=== PATIENT | female | born 1980 | race Caucasian/White ===

== ENCOUNTER 2016-07-13 14:02 | Inpatient (IN) | payer BC, OTHER ==
[2016-07-13] MEDS ORDERED: SODIUM CHLORIDE 0.9% 1,000 ML IV STA (14:16)
[2016-07-13] MEDS ORDERED: ONDANSETRON 4 MG/2 ML VIAL IVP STA (14:16)
[2016-07-13] MEDS ORDERED: DICYCLOMINE 10 MG/ML 2 ML AMP IM STA (14:16)
[2016-07-13] MEDS ORDERED: FAMOTIDINE 20 MG/2 ML VIAL IV STA (14:19)
--- NOTE | 2016-07-13 14:22 | ED ---
General Adult HPI - General Chief complaint: Abdominal Pain Stated complaint: Abd Pain Time Seen by Provider: 07/13/16 14:12 Source: patient, RN notes reviewed Mode of arrival: ambulatory Limitations: no limitations - History of Present Illness Initial comments: Patient is a pleasant 35-year-old female presenting to the emergency department with complaints of abdominal discomfort. Onset of symptoms was yesterday. Symptoms seemed to improve however have again worsened. Patient had some mild nausea earlier. No vomiting. No dysuria or hematuria. No constipation or diarrhea. Discomfort is somewhat positional. There is some radiation towards the back. No history of similar symptoms previously. - Related Data Home Medications Medication Instructions Recorded Confirmed Chromium Picolinate 200 mcg PO BID 07/13/16 07/13/16 Allergies Allergy/AdvReac Type Severity Reaction Status Date / Time No Known Allergies Allergy Verified 07/13/16 14:23 Review of Systems ROS Statement: Those systems with pertinent positive or pertinent negative responses have been documented in the HPI. ROS Other: All systems not noted in ROS Statement are negative. Constitutional: Denies: fever Eyes: Denies: eye pain ENT: Denies: ear pain Respiratory: Denies: cough, dyspnea Cardiovascular: Denies: chest pain Endocrine: Denies: fatigue Gastrointestinal: Reports: abdominal pain, nausea. Denies: vomiting Genitourinary: Denies: dysuria, hematuria Musculoskeletal: Denies: arthralgia Skin: Denies: rash Neurological: Denies: weakness Past Medical History Past Medical History: Diabetes Mellitus Additional Past Medical History / Comment(s): diverticulitis History of Any Multi-Drug Resistant Organisms: None Reported Past Surgical History: Hysterectomy, Tubal Ligation Additional Past Surgical History / Comment(s): WISDOM TEETH REMOVED UNDER ANESTHESIA, Past Anesthesia/Blood Transfusion Reactions: No Reported Reaction Past Psychological History: No Psychological Hx Reported Smoking Status: Never smoker Past Alcohol Use History: Occasional Past Drug Use History: None Reported - Past Family History Mother Family Medical History: No Reported History General Exam Limitations: no limitations General appearance: alert, in no apparent distress Head exam: Present: atraumatic Eye exam: Present: normal appearance, PERRL ENT exam: Present: normal exam Neck exam: Present: normal inspection Respiratory exam: Present: normal lung sounds bilaterally Cardiovascular Exam: Present: regular rate, normal rhythm Expanded Peripheral pulses: 2+: Posterior Tibialis (R), Posterior Tibialis (L) GI/Abdominal exam: Present: soft, tenderness (Mild tenderness in the periumbilical region and left upper quadrant), normal bowel sounds. Absent: distended, guarding, rebound, rigid Extremities exam: Present: normal inspection Back exam: Absent: CVA tenderness (L) (States below the left CVA as the area of discomfort however no tenderness to palpation.) Neurological exam: Present: alert Psychiatric exam: Present: normal affect, normal mood Skin exam: Absent: rash Course Vital Signs 07/13/16 07/13/16 14:03 16:01 Temperature 98.4 F Pulse Rate 72 68 Respiratory 18 18 Rate Blood Pressure 109/53 126/87 O2 Sat by Pulse 99 99 Oximetry - Reevaluation(s) Reevaluation #1: 07/13/16 15:55 Patient was reevaluated with similar complaints and abdominal exam. Patient updated on elevated blood sugar. Patient states she was on metformin however was taken off of this secondary to concerns for diarrhea. Patient will discuss this again with her primary care physician. Patient was also updated on an ability to run lipase and need for further evaluation with this as well as cholesterol testing. 07/13/16 15:55 Patient does not want any further pain medication at this time. Medical Decision Making - Medical Decision Making Patient reevaluated and has continued pain. Patient was not receptive to medication. Patient was updated on results and plan. Case was discussed in detail with Dr. Briscoe, who will admit for Dr. Gottlieb. Consult with Dr. Hubbard - Lab Data Result diagrams: 07/13/16 14:45 07/13/16 14:45 Lab Results 07/13/16 07/13/16 07/13/16 Range/Units 14:45 14:45 14:45 WBC 7.5 (3.8-10.6) k/uL RBC 4.41 (3.80-5.40) m/uL Hgb 14.1 (11.4-16.0) gm/dL Hct 39.3 (34.0-46.0) % MCV 89.1 (80.0-100.0) fL MCH 31.9 (25.0-35.0) pg MCHC 35.9 (31.0-37.0) g/dL RDW 13.0 (11.5-15.5) % Plt Count 236 (150-450) k/uL Neutrophils % 70 % Lymphocytes % 21 % Monocytes % 4 % Eosinophils % 3 % Basophils % 1 % Neutrophils # 5.3 (1.3-7.7) k/uL Lymphocytes # 1.5 (1.0-4.8) k/uL Monocytes # 0.3 (0-1.0) k/uL Eosinophils # 0.2 (0-0.7) k/uL Basophils # 0.1 (0-0.2) k/uL Sodium 134 L (137-145) mmol/L Potassium 5.3 H (3.5-5.1) mmol/L Chloride 102 (98-107) mmol/L Carbon Dioxide 21 L (22-30) mmol/L Anion Gap 11 mmol/L BUN 11 (7-17) mg/dL Creatinine 0.50 L (0.52-1.04) mg/dL Est GFR (MDRD) Af Amer >60 (>60 ml/min/1.73 sqM) Est GFR (MDRD) Non-Af >60 (>60 ml/min/1.73 sqM) Glucose 262 H (74-99) mg/dL Calcium 9.5 (8.4-10.2) mg/dL Total Bilirubin 1.5 H (0.2-1.3) mg/dL AST 72 H (14-36) U/L ALT 51 (9-52) U/L Alkaline Phosphatase 114 (38-126) U/L Total Protein 8.5 H (6.3-8.2) g/dL Albumin 4.7 (3.5-5.0) g/dL Amylase 97 (30-110) U/L Lipase (23-300) U/L Urine Color Yellow Urine Appearance Cloudy H (Clear) Urine pH 5.0 (5.0-8.0) Ur Specific [place] 1.033 (1.001-1.035) Urine Protein Trace H (Negative) Urine Glucose (UA) 4+ H (Negative) Urine Ketones Negative (Negative) Urine Blood Small H (Negative) Urine Nitrite Negative (Negative) Urine Bilirubin Negative (Negative) Urine Urobilinogen <2.0 (<2.0) mg/dL Ur Leukocyte Esterase Negative (Negative) Urine RBC 1 (0-5) /hpf Urine WBC 3 (0-5) /hpf Ur Squamous Epith Cells 9 H (0-4) /hpf Urine Bacteria Rare H (None) /hpf Urine Mucus Occasional H (None) /hpf - Radiology Data Radiology results: report reviewed (Computed tomography scan abdomen and pelvis shows concerns for acute pancreatitis), image reviewed (Abdominal x-ray shows no acute process) Disposition Clinical Impression: Pancreatitis Disposition: ADMITTED IP TO THIS HOSP
[2016-07-13 15:15] LABS: Chloride 102 mmol/L (98-107)
--- NOTE | 2016-07-13 15:15 | XR ---
EXAMINATION TYPE: XR KUB DATE OF EXAM: 07/13/2016 3:06 PM CLINICAL HISTORY: Left-sided abdominal pain and nausea. TECHNIQUE: 2 upright KUB images of the abdomen are obtained. COMPARISON: Abdominal x-ray and CT abdomen and pelvis August 25, 2011. FINDINGS: Scattered gas is seen in non-distended small bowel loops. Gas and fecal material is seen in non-distended colon. The amount of fecal material is slightly prominent in the pelvis. Curvilinear density right midabdomen is felt to reflect dependent calcified gallstones. No pneumoperitoneum is s een. Lung bases are clear. Visualized osseous structures are intact. IMPRESSION: Overall nonobstructive bowel gas pattern. Perhaps mild to moderate distal colonic fecal stasis. Calci fied gallstones redemonstrated.
[2016-07-13 15:19] LABS: Appearance,Urine Cloudy (Clear); Bacteria,Urine Rare /hpf; Bilirubin,Urine Negative (Negative); Glucose,Urine (UA) 4+ (Negative); Ketones,Urine Negative (Negative); Leukocyte Esterase,Urine Negative (Negative); Mucus,Urine Occasional /hpf; Nitrite,Urine Negative (Negative); Particle Count 8350; Protein,Urine Trace (Negative); RBC,Urine 1 /hpf (0-5); Specific Gravity,Urine 1.033 (1.001-1.035); Squamous Epithelial Cell,Urine 9 /hpf (0-4); UA Billing (MACRO vs. MICRO) MICRO; Urobilinogen,Urine <2.0 mg/dL (<2.0); WBC,Urine 3 /hpf (0-5)
[2016-07-13 15:21] LABS: Sodium 134 mmol/L (137-145)
[2016-07-13 15:25] LABS: Basophils # (A) 0.1 k/uL (0-0.2); Basophils % (A) 1 %; CH 31.9; CHCM 35.9; Eosinophils # (A) 0.2 k/uL (0-0.7); Eosinophils % (A) 3 %; HCT 39.3 % (34.0-46.0); HDW 2.81; Luc # (Auto) 0.11; Luc % (Auto) 2; Lymphocytes # (A) 1.5 k/uL (1.0-4.8); Lymphocytes % (A) 21 %; MCV 89.1 fL (80.0-100.0); Mean Platelet Volume 7.9; Monocytes # (A) 0.3 k/uL (0-1.0); Monocytes % (A) 4 %; Neutrophils # (A) 5.3 k/uL (1.3-7.7); Neutrophils % (A) 70 %; RBC 4.41 m/uL (3.80-5.40); WBC 7.5 k/uL (3.8-10.6); WBC (Perox) 6.94
[2016-07-13 15:26] LABS: Potassium 5.3 mmol/L (3.5-5.1)
[2016-07-13 15:39] LABS: MCHC 35.9 g/dL (31.0-37.0)
[2016-07-13 15:40] LABS: HGB 14.1 gm/dL (11.4-16.0); MCH 31.9 pg (25.0-35.0)
[2016-07-13 15:45] LABS: ALT 51 U/L (9-52); AST 72 U/L (14-36); Alkaline Phosphatase 114 U/L (38-126); Amylase 97 U/L (30-110); Anion Gap 11 mmol/L; Blood Urea Nitrogen 11 mg/dL (7-17); Calcium 9.5 mg/dL (8.4-10.2); Carbon Dioxide 21 mmol/L (22-30); Glucose 262 mg/dL (74-99); Non-African American GFR(MDRD) >60 (>60 ml/min/1.73 sqM); Total Bilirubin 1.5 mg/dL (0.2-1.3); Total Protein 8.5 g/dL (6.3-8.2)
[2016-07-13] MEDS ORDERED: RX INFO: IV CONTRAST WAS GIVEN 1 EACH MISC MISCELLANE PRN (15:56)
--- NOTE | 2016-07-13 17:10 | CT ---
EXAMINATION TYPE: CT abdomen pelvis w con DATE OF EXAM: 07/13/2016 4:40 PM HISTORY: Right upper quadrant pain x [address] DLP: 595.90mGycm Automated Exposure Control for Dose Reduction was Utilized. CONTRAST: CT scan of the abdomen and pelvis is performed without oral but with IV Contrast, patient injected wi th 100 mL of Omnipaque 300. COMPARISON: CT abdomen and pelvis August 25, 2011. FINDINGS: LUNG BASES: Dependent atelectatic changes present in both bases. LIVER/GB: Liver is diffusely hypodense consistent with fatty infiltration. PANCREAS: Pancreas is prominent particularly in distal body and tail with ill-defined surrounding flu id noted seen best near axial image 24. CT findings are consistent with acute pancreatitis. No suspic ious nonenhancement is present to suggest necrosis. No well-formed fluid collection is seen. SPLEEN: No significant abnormality is seen. ADRENALS: No significant abnormality is seen. KIDNEYS: No significant abnormality is seen. BOWEL: No suspicious small or large bowel dilatation is seen. Normal-appearing appendix is seen from cecum. Occasional diverticula are seen in the left and sigmoid colon. There is no CT evidence for ac [place] diverticulitis. UTERUS/ADNEXA: Uterus is surgically absent or markedly atrophic in appearance. There is 4.5 x 3.7 cm right adnexal or pelvic mass on axial image 79 suspicious for ovarian cyst. This is new from pelvic u ltrasound January 2015. LYMPH NODES: No greater than 1cm abdominal or pelvic lymph nodes are appreciated. OSSEOUS STRUCTURES: Bilateral pars defects L5 level are seen. No significant spondylolisthesis is pre sent. OTHER: No significant additional abnormality is seen. IMPRESSION: 1. CT findings are suggestive of acute pancreatitis centered in the pancreatic tail, clinical and lab correlation advised. 2. There is new 4.5 cm right adnexal or ovarian cystic lesion favoring ovarian cyst. Pelvic ultrasoun d is advised to better evaluate and characterize.
[2016-07-13] MEDS ORDERED: MORPHINE SULFATE 2 MG/ML SYRINGE IVP STA (18:29)
[2016-07-13] MEDS ORDERED: NALOXONE 0.4 MG/ML 1 ML VIAL IV PRN (18:30)
[2016-07-13] MEDS: MORPHINE SULFATE 4 MG/ML SYRINGE IV PRN ×2 (18:45→22:00)
[2016-07-13] MEDS: SODIUM CHLORIDE 0.9% 1,000 ML IV SCH (19:04)
[2016-07-14] MEDS: MORPHINE SULFATE 4 MG/ML SYRINGE IV PRN ×2 (03:08→10:51)
[2016-07-14] MEDS: SODIUM CHLORIDE 0.9% 1,000 ML IV SCH ×2 (04:38→13:36)
[2016-07-14 08:18] LABS: Glucose,Whole Blood 303 mg/dL (75-99)
[2016-07-14] MEDS: PANTOPRAZOLE 40 MG/10 ML VIAL IV SCH (08:23)
--- NOTE | 2016-07-14 08:23 | US ---
EXAMINATION TYPE: US gallbladder DATE OF EXAM: 07/14/2016 7:50 AM COMPARISON: CT abdomen and pelvis from yesterday. CLINICAL HISTORY: Pancreatitis. NPO. Diabetic. EXAM MEASUREMENTS: Liver Length: 18.9 cm Gallbladder Wall: 0.2 cm CBD: 0.4 cm Right Kidney: 11.0 x 5.5 x 4.4 cm Pancreas: Tail not well seen due to overlying bowel gas. Body = 2.3 cm Liver: Increased attenuation, echogenic Gallbladder: Mobile echogenic foci Evidence for sonographic Barton's sign: neg CBD: wnl Right Kidney: wnl Visualized pancreas is slightly prominent. Tail is obscured by overlying bowel gas at area of concern on recent CT. Liver is heterogeneously hyperechoic consistent with fatty infiltration as seen on rec ent CT. Mobile nonshadowing foci in gallbladder could reflect small sludge. No pericholecystic fluid collection or abnormal gallbladder wall thickening is seen. IMPRESSION: Small degree of gallbladder sludge without ultrasound evidence for acute cholecystitis.
[2016-07-14 09:17] LABS: Amylase 93 U/L (30-110); Cholesterol 320 mg/dL (<200); HDL Cholesterol 36 mg/dL (40-60)
[2016-07-14 09:56] LABS: Glucose,Whole Blood 277 mg/dL (75-99)
[2016-07-14 10:32] LABS: Triglycerides 2495 mg/dL (<150)
[2016-07-14] MEDS: INSULIN LISPRO (humaLOG) 300 UNIT/3 ML VIAL SQ SCH ×4 (10:42→21:45)
[2016-07-14] MEDS: ONDANSETRON 4 MG/2 ML VIAL IVP PRN ×2 (11:02→15:07)
[2016-07-14 11:46] LABS: Glucose,Whole Blood 221 mg/dL (75-99)
[2016-07-14] MEDS ORDERED: ACETAMINOPHEN TAB 500 MG TAB PO PRN (12:23)
--- NOTE | 2016-07-14 13:36 | P.GSCN ---
History of Present Illness Consult date: 07/14/16 Reason for Consult: Gallstone pancreatitis History of present illness: This is a 35-year-old female who is admitted through the emergency room with complaints of epigastric abdominal pain and back pain. She is workup found have evidence of peritonitis as well as gallstones. Patient states her pain is still present in her back. Past Medical History Past Medical History: Diabetes Mellitus Additional Past Medical History / Comment(s): diverticulitis History of Any Multi-Drug Resistant Organisms: None Reported Past Surgical History: Hysterectomy, Tubal Ligation Additional Past Surgical History / Comment(s): WISDOM TEETH REMOVED UNDER ANESTHESIA, Past Anesthesia/Blood Transfusion Reactions: No Reported Reaction Past Psychological History: No Psychological Hx Reported Smoking Status: Never smoker Past Alcohol Use History: Occasional Past Drug Use History: None Reported - Past Family History Mother Family Medical History: No Reported History Medications and Allergies Home Medications Medication Instructions Recorded Confirmed Type Chromium Picolinate 200 mcg PO BID 07/13/16 07/13/16 History Allergies Allergy/AdvReac Type Severity Reaction Status Date / Time No Known Allergies Allergy Verified 07/13/16 14:23 Surgical - Exam Vital Signs Temp Pulse Resp BP Pulse Ox 98.4 F 72 18 109/53 99 07/13/16 14:03 07/13/16 14:03 07/13/16 14:03 07/13/16 14:03 07/13/16 14:03 - General well developed, no distress - Eyes PERRL - ENT normal pinna - Neck no masses - Respiratory normal expansion - Cardiovascular Rhythm: regular - Abdomen Mild epigastric tenderness. There is no rebound or guarding. Abdomen: soft Results - Labs 07/13/16 14:45 07/13/16 14:45 Abnormal Lab Results - Last 24 Hours (Table) 07/14/16 07/14/16 07/14/16 Range/Units 08:15 08:35 08:35 POC Glucose (mg/dL) 303 H (75-99) mg/dL Triglycerides 2495 H (<150) mg/dL Cholesterol 320 H (<200) mg/dL HDL Cholesterol 36 L (40-60) mg/dL Lipase 675 H (23-300) U/L 07/14/16 07/14/16 Range/Units 09:53 11:43 POC Glucose (mg/dL) 277 H 221 H (75-99) mg/dL Triglycerides (<150) mg/dL Cholesterol (<200) mg/dL HDL Cholesterol (40-60) mg/dL Lipase (23-300) U/L Diabetes panel 07/14/16 Range/Units 08:35 Triglycerides 2495 H (<150) mg/dL HDL Cholesterol 36 L (40-60) mg/dL - Imaging US - abdomen: report reviewed (Gallstones) Assessment and Plan Plan: Gallstone pancreas. Patient's lipase will be monitored. If her lipase decreases we'll consider laparoscopic cholecystectomy tomorrow.
[2016-07-14 13:59] LABS: Hemoglobin A1C 11.3 % (4.2-6.1)
--- NOTE | 2016-07-14 16:34 | P.HPIM ---
History of Present Illness H&P Date: 07/14/16 Chief Complaint: Abdominal pain This is a pleasant 35-year-old lady patient of Dr. Rivera. She has underlying history of diabetes mellitus type 2, hyperlipidemia, and recent hysterectomy laparoscopy robotic-assisted secondary to menometrorrhagia, patient was admitted secondary to abdominal pain which started 1 day prior to admission accompanied by nausea no fever no chills no diarrhea patient has bloating off and on without any jaundice. In the emergency room she was evaluated and found her to be suffering from acute pancreatitis also with ill-defined swelling in the distal body of the pancreas and the tail of the pancreas, amylase was normal however the original lipase evaluation cannot be treated as the patient's serum has been very lipemic , fasting lipase is elevated at 675, fasting triglyceride 2495 urinalysis normal RBC [address] findings show new 4.5 cm right adnexal or ovarian cyst favoring ovarian cyst, needs to be monitored patient, fatty liver noted, no suspicious enhancement representing necrosis Also ultrasound of the gallbladder shows small degree of sludge without ultrasound evidence of acute cholecystitis, and bile duct wall within normal limits, and bile duct 0.4 cm the bladder wall 0.2 cm a consult was made with Dr. Hubbard general surgery she currently is nothing by mouth Review of Systems Constitutional: Reports as per HPI, Reports anorexia, Reports chills, Reports poor appetite, Denies chronic headaches, Denies chronic pain, Denies daytime sleepiness, Denies fatigue, Denies fever, Denies lethargy, Denies malaise, Denies night sweats, Denies sweats, Denies weakness, Denies weight gain, Denies weight loss Ears, nose, mouth and throat: Reports as per HPI, Denies ant. neck pain, Denies bleeding gums, Denies dental pain, Denies dysphagia, Denies epistaxis, Denies headache, Denies hoarseness, Denies mouth pain, Denies nasal congestion, Denies nasal discharge, Denies neck fullness/pressure, Denies neck lump, Denies nose pain, Denies odynophagia, Denies post-nasal drip, Denies sinus pain, Denies sinus pressure, Denies swelling in mouth, Denies swelling in throat, Denies sore throat, Denies vertigo, Denies voice changes Cardiovascular: Reports as per HPI, Denies chest pain, Denies claudication, Denies decreased exercise tolerance, Denies dyspnea on exertion, Denies edema, Denies high blood pressure, Denies irregular heart beat, Denies leg edema, Denies lightheadedness, Denies orthopnea, Denies palpitations, Denies paroxysmal nocturnal dyspnea, Denies phlebitis, Denies rapid heart beat, Denies shortness of breath, Denies syncope Respiratory: Reports as per HPI, Denies congestion, Denies cough, Denies cough with sputum, Denies dyspnea, Denies excessive sputum, Denies hemoptysis, Denies home oxygen, Denies pain, Denies pain on inspiration, Denies pleurisy, Denies respiratory infections, Denies sleep apnea, Denies snoring, Denies wheezing Gastrointestinal: Reports as per HPI, Reports abdominal pain, Reports bloating, Reports early satiety, Reports nausea, Denies belching, Denies BRBPR, Denies change in bowel habits, Denies coffee ground emesis, Denies constipation, Denies diarrhea, Denies dyspepsia, Denies excessive gas, Denies heartburn, Denies hematemesis, Denies hematochezia, Denies indigestion, Denies jaundice, Denies lactose intolerance, Denies loss of appetite, Denies melena, Denies vomiting Genitourinary: Reports as per HPI, Denies abnormal vaginal bleeding, Denies decreased libido, Denies difficulty conceiving, Denies difficulty voiding, Denies dysmenorrhea, Denies dyspareunia, Denies dysuria, Denies flank pain, Denies genital sores, Denies hematuria, Denies hot flashes, Denies incomplete emptying, Denies kidney stones, Denies menorrhagia, Denies mixed incontinence, Denies nocturia, Denies pelvic pain, Denies post void dribbling, Denies , Denies prolapse symptoms, Denies stress incontinence, Denies urge incontinence , Denies urgency, Denies urinary frequency, Denies vaginal discharge, Denies vaginal dryness, Denies vaginal itching, Denies vaginal odor Menstruation: Reports as per HPI, Denies amenorrhea, Denies amenorrhea on BC, Denies currently menstrual, Denies cycle < 21 days, Denies cycle > 35 days, Denies cycle variable, Denies menses 1-7 days, Denies menses 8 or > days, Denies menses variable, Denies period heavy, Denies period light, Denies period normal, Denies period spotting, Denies post hysterectomy, Denies postmenopausal , Denies premenarcheal Musculoskeletal: Reports as per HPI, Denies arm numbness/tingling, Denies atrophy, Denies fractures, Denies frequent falls, Denies gait dysfunction, Denies hot joints, Denies leg numbness/tingling, Denies limitation of motion, Denies loss of height, Denies low back pain, Denies morning stiffness, Denies muscle cramps, Denies muscle weakness, Denies myalgias, Denies neck pain, Denies neck stiffness, Denies prior amputations, Denies redness of joints, Denies shooting arm pain, Denies shooting leg pain Integumentary: Reports as per HPI, Denies acne, Denies boils, Denies brittle nails, Denies change in hair/nails, Denies color changes, Denies darkening of skin, Denies depigmentation, Denies dryness, Denies foot/leg ulcers, Denies growths, Denies hirsutism, Denies lesions, Denies onychomycosis, Denies pruritus , Denies rash, Denies sores, Denies striae, Denies unusual bruising, Denies wounds Neurological: Reports as per HPI, Denies aphasia, Denies ataxia, Denies balance difficulties, Denies burning pain, Denies change in mentation, Denies change in smell/taste, Denies change in speech, Denies confusion, Denies convulsions, Denies double vision, Denies gait dysfunction, Denies head injury, Denies headaches, Denies hearing difficulties, Denies lack of coordination, Denies loss of vision, Denies memory loss, Denies migraines, Denies motor disturbance, Denies numbness, Denies paralysis, Denies paresthesias, Denies seizures, Denies sensory deficit, Denies spasticity, Denies syncope, Denies tic, Denies tingling , Denies transient paralysis, Denies tremors, Denies vertigo, Denies weakness, Denies visual changes Psychiatric: Reports as per HPI, Denies anhedonia, Denies anxiety, Denies anxiety attacks, Denies change in appetite, Denies change in libido, Denies change in sleep habits, Denies confusion, Denies depression, Denies difficulty concentrating, Denies disorientation, Denies hallucinations, Denies hopelessness , Denies hypersomnia, Denies insomnia, Denies irritability, Denies memory loss, Denies mood swings, Denies paranoia, Denies sadness/tearfulness, Denies sleep disturbances, Denies suicidal ideation Endocrine: Reports as per HPI, Denies cold intolerance, Denies deepening of the voice, Denies excessive sweating, Denies excessive thirst, Denies fatigue, Denies flushing, Denies heat intolerance, Denies high blood sugars, Denies increase in ring/shoe/hat size, Denies low blood sugars, Denies nocturia, Denies palpitations, Denies polydipsia, Denies polyphagia, Denies polyuria, Denies proptosis, Denies recent glucocorticoid use, Denies thyroid mass, Denies weight change Hematologic/Lymphatic: Reports as per HPI, Denies easy bleeding, Denies easy bruising, Denies lymphadenopathy, Denies lymphedema, Denies thrombophilia Allergic/Immunologic: Reports as per HPI, Denies allergic rhinitis, Denies anaphylaxis, Denies angioedema, Denies gluten intolerance, Denies persistent infections, Denies seasonal allergies, Denies urticaria, Denies wheezing Past Medical History Past Medical History: Diabetes Mellitus Additional Past Medical History / Comment(s): diverticulitis History of Any Multi-Drug Resistant Organisms: None Reported Past Surgical History: Hysterectomy, Tubal Ligation Additional Past Surgical History / Comment(s): WISDOM TEETH REMOVED UNDER ANESTHESIA, Past Anesthesia/Blood Transfusion Reactions: No Reported Reaction Past Psychological History: No Psychological Hx Reported Smoking Status: Never smoker Past Alcohol Use History: Occasional Past Drug Use History: None Reported - Past Family History Mother Family Medical History: No Reported History, Diabetes Mellitus Father Family Medical History: Diabetes Mellitus Brother(s) Family Medical History: No Reported History Sister(s) Family Medical History: No Reported History Daughter(s) Family Medical History: No Reported History Medications and Allergies Home Medications Medication Instructions Recorded Confirmed Type Chromium Picolinate 200 mcg PO BID 07/13/16 07/13/16 History Allergies Allergy/AdvReac Type Severity Reaction Status Date / Time No Known Allergies Allergy Verified 07/13/16 14:23 Physical Exam Vitals: Vital Signs Temp Pulse Pulse Resp BP BP Pulse Ox 04/30/17 08:00 96 16 07/14/16 07:00 98.4 F 109 H 16 113/67 99 07/13/16 22:57 96.4 F L 96 16 109/61 95 07/13/16 19:47 97.6 F 85 16 131/89 98 07/13/16 19:34 97.6 F 76 16 124/82 98 07/13/16 18:46 85 18 131/89 100 Intake and Output 07/14/16 07/14/16 07/14/16 06:59 14:59 22:59 Intake Total 800 785 Balance 800 785 Intake: IV 800 Sodium Chloride 0.9% 1, 800 000 ml @ 100 mls/hr IV . Q10H [facility] Rx#:[id number] Intake, IV Titration 785 Amount Sodium Chloride 0.9% 1, 785 000 ml @ 115 mls/hr IV . Q8H42M [facility] Rx#:[id number] Other: Voiding Method Toilet # Voids 1 3 Weight 65.771 kg - Constitutional General appearance: cooperative, no acute distress - EENT Eyes: anicteric sclerae, EOMI, PERRLA, normal appearance ENT: hard of hearing, NA/AT, normal oropharynx - Neck Neck: no lymphadenopathy, normal ROM, no other, no rigidity, no stridor, no thyromegaly - Respiratory Respiratory: bilateral: CTA, negative: diminished, dullness, rales, rhonchi, wheezing, prolonged expiration, prolonged inspiration - Cardiovascular Rhythm: regular Heart sounds: normal: S1, S2 Abnormal Heart Sounds: no systolic murmur, no diastolic murmur, no rub, no S3 Gallop, no S4 Gallop, no click, no other - Gastrointestinal General gastrointestinal: soft Localized gastrointestinal: tender: diffuse, epigastric periumbilical - Integumentary Integumentary: normal, normal turgor - Neurologic Neurologic: CNII-XII intact - Musculoskeletal Musculoskeletal: gait normal, strength equal bilaterally - Psychiatric Psychiatric: A&O x's 3, appropriate affect, intact judgment & insight Results CBC & Chem 7: 07/13/16 14:45 07/13/16 14:45 Labs: Abnormal Lab Results - Last 24 Hours (Table) 07/14/16 07/14/16 07/14/16 Range/Units 08:15 08:35 08:35 POC Glucose (mg/dL) 303 H (75-99) mg/dL Triglycerides 2495 H (<150) mg/dL Cholesterol 320 H (<200) mg/dL HDL Cholesterol 36 L (40-60) mg/dL Lipase 675 H (23-300) U/L 07/14/16 07/14/16 Range/Units 09:53 11:43 POC Glucose (mg/dL) 277 H 221 H (75-99) mg/dL Triglycerides (<150) mg/dL Cholesterol (<200) mg/dL HDL Cholesterol (40-60) mg/dL Lipase (23-300) U/L Laboratory Results WBC 7.5 k/uL (3.8-10.6) 07/13/16 14:45 RBC 4.41 m/uL (3.80-5.40) 07/13/16 14:45 Hgb 14.1 gm/dL (11.4-16.0) 07/13/16 14:45 Hct 39.3 % (34.0-46.0) 07/13/16 14:45 MCV 89.1 fL (80.0-100.0) 07/13/16 14:45 MCH 31.9 pg (25.0-35.0) 07/13/16 14:45 MCHC 35.9 g/dL (31.0-37.0) 07/13/16 14:45 RDW 13.0 % (11.5-15.5) 07/13/16 14:45 Plt Count 236 k/uL (150-450) 07/13/16 14:45 Neutrophils % 70 % 07/13/16 14:45 Lymphocytes % 21 % 07/13/16 14:45 Monocytes % 4 % 07/13/16 14:45 Eosinophils % 3 % 07/13/16 14:45 Basophils % 1 % 07/13/16 14:45 Neutrophils # 5.3 k/uL (1.3-7.7) 07/13/16 14:45 Lymphocytes # 1.5 k/uL (1.0-4.8) 07/13/16 14:45 Monocytes # 0.3 k/uL (0-1.0) 07/13/16 14:45 Eosinophils # 0.2 k/uL (0-0.7) 07/13/16 14:45 Basophils # 0.1 k/uL (0-0.2) 07/13/16 14:45 Sodium 134 mmol/L (137-145) L 07/13/16 14:45 Potassium 5.3 mmol/L (3.5-5.1) H 07/13/16 14:45 Chloride 102 mmol/L (98-107) 07/13/16 14:45 Carbon Dioxide 21 mmol/L (22-30) L 07/13/16 14:45 Anion Gap 11 mmol/L 07/13/16 14:45 BUN 11 mg/dL (7-17) 07/13/16 14:45 Creatinine 0.50 mg/dL (0.52-1.04) L 07/13/16 14:45 Est GFR (MDRD) Af Amer >60 (>60 ml/min/1.73 sqM) 07/13/16 14:45 Est GFR (MDRD) Non-Af >60 (>60 ml/min/1.73 sqM) 07/13/16 14:45 Glucose 262 mg/dL (74-99) H 07/13/16 14:45 POC Glucose (mg/dL) 221 mg/dL (75-99) H 07/14/16 11:43 POC Glu Back Office Medical Assistant ID Palmer Henao 07/14/16 11:[address] Glu mg/dL 278 mg/dL 07/13/16 14:45 Hemoglobin A1c 11.3 % (4.2-6.1) H 07/13/16 14:45 Calcium 9.5 mg/dL (8.4-10.2) 07/13/16 14:45 Magnesium 1.8 mg/dL (1.6-2.3) 07/14/16 08:35 Total Bilirubin 1.5 mg/dL (0.2-1.3) H 07/13/16 14:45 AST 72 U/L (14-36) H 07/13/16 14:45 ALT 51 U/L (9-52) 07/13/16 14:45 Alkaline Phosphatase 114 U/L (38-126) 07/13/16 14:45 Total Protein 8.5 g/dL (6.3-8.2) H 07/13/16 14:45 Albumin 4.7 g/dL (3.5-5.0) 07/13/16 14:45 Triglycerides 2495 mg/dL (<150) H 07/14/16 08:35 Cholesterol 320 mg/dL (<200) H 07/14/16 08:35 LDL Cholesterol, Calc mg/dL (0-99) 07/14/16 08:35 HDL Cholesterol 36 mg/dL (40-60) L 07/14/16 08:35 Amylase 93 U/L (30-110) 07/14/16 08:35 Lipase 675 U/L (23-300) H 07/14/16 08:35 Urine Color Yellow 07/13/16 14:45 Urine Appearance Cloudy (Clear) H 07/13/16 14:45 Urine pH 5.0 (5.0-8.0) 07/13/16 14:45 Ur Specific [place] 1.033 (1.001-1.035) 07/13/16 14:45 Urine Protein Trace (Negative) H 07/13/16 14:45 Urine Glucose (UA) 4+ (Negative) H 07/13/16 14:45 Urine Ketones Negative (Negative) 07/13/16 14:45 Urine Blood Small (Negative) H 07/13/16 14:45 Urine Nitrite Negative (Negative) 07/13/16 14:45 Urine Bilirubin Negative (Negative) 07/13/16 14:45 Urine Urobilinogen <2.0 mg/dL (<2.0) 07/13/16 14:45 Ur Leukocyte Esterase Negative (Negative) 07/13/16 14:45 Urine RBC 1 /hpf (0-5) 07/13/16 14:45 Urine WBC 3 /hpf (0-5) 07/13/16 14:45 Ur Squamous Epith Cells 9 /hpf (0-4) H 07/13/16 14:45 Urine Bacteria Rare /hpf (None) H 07/13/16 14:45 Urine Mucus Occasional /hpf (None) H 07/13/16 14:45 Thrombosis Risk Factor Assmnt - DVT/VTE Prophylaxis DVT/VTE Prophylaxis: Low risk, early ambulation encouraged - Choose All That Apply Any of the Below Risk Factors Present?: Yes Each Factor Represents 1 point: Obesity (BMI >25) Thrombosis Risk Factor Assessment Total Risk Factor Score: 1 Thrombosis Risk Factor Assessment Level: Low Risk Assessment and Plan Plan: 1. Pancreatitis secondary to significant lipemia and elevated triglycerides, patient has sludge in the Bladder by ultrasound, no visible stones noted, common bile duct is normal, liver function test is slightly elevated without any evidence off obstructive processes, patient will be seen consultation by Dr. Mikki De Santiago, patient would be started on clears with the anticipation of gallbladder surgery in the immediate future, as recommended by general surgery Dr. Hubbard 2. Hyperlipidemia patient was advised on dietary modifications again 3. Uncontrolled diabetes mellitus with hemoglobin A1c of 11.3, patient was type II with recent diagnosis and has been off metformin, patient will be started on Lantus 20 units daily and NovoLog sliding scale. Patient most likely would be titrated down to her orals 4. Hyperosmolar nonketotic hyperglycemia, with dehydration, no ketones noted on clinical laboratories, patient maintains hydration, diabetes management with compliance as well as Lantus and oral agents 5. Fatty liver related liver function test secondary to dietary negligence 6. Dehydration, IV fluids were given, 1 L for hemodynamic instability in view off the current pending despite this GI Prophylaxis and DVT prophylaxis Protonix and JABIER hose
[2016-07-14 17:13] LABS: Glucose,Whole Blood 225 mg/dL (75-99)
[2016-07-14 19:48] LABS: Glucose,Whole Blood 322 mg/dL (75-99)
[2016-07-14] MEDS: ACETAMINOPHEN TAB 325 MG TAB PO PRN (21:44)
[2016-07-14] MEDS: INSULIN GLARGINE 100 UNIT/ML 10 ML VIAL SQ SCH (21:45)
[2016-07-15] MEDS: SODIUM CHLORIDE 0.9% 1,000 ML IV SCH ×2 (03:24→08:02)
[2016-07-15] MEDS: ACETAMINOPHEN TAB 325 MG TAB PO PRN ×2 (04:46→20:30)
[2016-07-15 07:32] LABS: Glucose,Whole Blood 214 mg/dL (75-99)
[2016-07-15] MEDS: INSULIN LISPRO (humaLOG) 300 UNIT/3 ML VIAL SQ SCH ×4 (08:02→20:36)
[2016-07-15] MEDS: PANTOPRAZOLE 40 MG/10 ML VIAL IV SCH (08:03)
[2016-07-15 09:42] LABS: Basophils % (A) 0 %; CH 31.3; CHCM 33.7; Eosinophils # (A) 0.1 k/uL (0-0.7); Eosinophils % (A) 1 %; HCT 37.8 % (34.0-46.0); HDW 2.61; HGB 12.6 gm/dL (11.4-16.0); Luc # (Auto) 0.07; Luc % (Auto) 1; Lymphocytes # (A) 0.8 k/uL (1.0-4.8); Lymphocytes % (A) 9 %; MCH 31.2 pg (25.0-35.0); MCHC 33.4 g/dL (31.0-37.0); MCV 93.6 fL (80.0-100.0); Mean Platelet Volume 8.1; Monocytes # (A) 0.3 k/uL (0-1.0); Monocytes % (A) 3 %; Neutrophils # (A) 7.9 k/uL (1.3-7.7); Neutrophils % (A) 86 %; RBC 4.04 m/uL (3.80-5.40); RDW 13.5 % (11.5-15.5); WBC 9.2 k/uL (3.8-10.6); WBC (Perox) 9.85
[2016-07-15 09:53] LABS: ALT 47 U/L (9-52); AST 41 U/L (14-36); Alkaline Phosphatase 92 U/L (38-126); Anion Gap 10 mmol/L; Blood Urea Nitrogen 4 mg/dL (7-17); Calcium 8.8 mg/dL (8.4-10.2); Carbon Dioxide 21 mmol/L (22-30); Chloride 106 mmol/L (98-107); Glucose 182 mg/dL (74-99); Non-African American GFR(MDRD) >60 (>60 ml/min/1.73 sqM); Potassium 3.8 mmol/L (3.5-5.1); Sodium 137 mmol/L (137-145); Total Bilirubin 0.9 mg/dL (0.2-1.3); Total Protein 6.3 g/dL (6.3-8.2)
[2016-07-15] MEDS ORDERED: IV FLUID CONTINUATION 1,000 ML IV ONE (11:31)
[2016-07-15] MEDS ORDERED: ONDANSETRON 4 MG/2 ML VIAL IVP ONE ×2 (11:42→13:56)
[2016-07-15] MEDS ORDERED: DEXAMETHASONE SOD PHOS (MDV) 100 MG/10 ML VIAL IVP ONE (11:43)
--- NOTE | 2016-07-15 11:43 | P.PN ---
Progress Note - Text The patient states she feels better today. Her liver enzymes improved. On exam her vital signs are stable. Her abdomen soft. Patient will undergo laparoscopic cholecystectomy today
[2016-07-15] MEDS ORDERED: SUCCINYLCHOLINE CHLORIDE 100 MG/5 ML SYR IV ONE (12:46)
[2016-07-15] MEDS ORDERED: ROCURONIUM BROMIDE 10 MG/ML 10 ML VIAL IV ONE (12:46)
[2016-07-15] MEDS ORDERED: GLYCOPYRROLATE 0.2 MG/ML 2 ML VIAL ONE (12:46)
[2016-07-15] MEDS ORDERED: MIDAZOLAM 2 MG/2 ML VIAL ONE (12:46)
[2016-07-15] MEDS ORDERED: NEOSTIGMINE 1 MG/ML 10 ML VIAL ONE (12:46)
[2016-07-15] MEDS ORDERED: PROPOFOL 10 MG/ML 20 ML VIAL IV ONE (12:46)
[2016-07-15] MEDS ORDERED: fentaNYL (PF) 50 MCG/ML 2 ML AMP ONE (12:46)
[2016-07-15] MEDS ORDERED: HEPARIN SODIUM,PORCINE 5,000 UNIT/ML 1 ML VIAL ONE (12:46)
[2016-07-15] MEDS ORDERED: LIDOCAINE 1% INJ 10MG/ML (20 ML MDV) ONE (12:46)
[2016-07-15] MEDS ORDERED: SODIUM CHLORIDE 0.9% 50 ML with ceFAZolin 2,000 MG IV ONE ×2 (12:52)
[2016-07-15] MEDS ORDERED: BUPIVACAIN-EPI 0.25%-1:200,000 30 ML VIAL SQ ONE (13:07)
[2016-07-15] MEDS ORDERED: LACTATED RINGERS 1,000 ML IV ONE ×2 (13:15→13:21)
[2016-07-15] MEDS ORDERED: NALOXONE 0.4 MG/ML 1 ML VIAL IV PRN (13:21)
[2016-07-15] MEDS ORDERED: HYDROcodone/APAP 5-325MG 1 EACH TAB PO PRN (13:21)
[2016-07-15] MEDS ORDERED: HYDROmorphone 1 MG/ML 1 ML SYRINGE IVP PRN (13:21)
[2016-07-15] MEDS ORDERED: ACETAMINOPHEN TAB 325 MG TAB PO PRN (13:21)
--- NOTE | 2016-07-15 13:21 | P.OP ---
Date of Procedure: 07/15/16 Preoperative Diagnosis: Gallstone pancreatitis Postoperative Diagnosis: Gallstone pancreatitis Procedure(s) Performed: Laparoscopic cholecystectomy Anesthesia: ANGELLA Surgeon: Marek Hubbard Estimated Blood Loss (ml): 5 Pathology: other (Gallbladder) Condition: stable Disposition: PACU Description of Procedure: The patient was placed on the operating table. The patient received a general endotracheal tube anesthesia. The patients abdomen was prepped and draped in the usual sterile fashion. Through an infraumbilical stab incision, the fascia of the anterior abdominal wall was grasped with a pair of Kochers and then the Veress needle was placed in the peritoneal cavity. Position of the Veress needle was confirmed with positive drop test. The abdomen was then insufflated. After adequate insufflation, the 10 mm trocar was placed in the peritoneal cavity. Following this the laparoscope was placed in the peritoneal cavity. The patient was placed in the head-up, right side up position and then a 5 mm trocar was placed in the right lateral and right subcostal position under direct visualization. A 8 mm trocar was placed in the epigastric position. The gallbladder was grasped in the fundus and infundibulum. Traction on the gallbladder was placed in the lateral and the cephalad positions. The triangle of Calot was visualized.. The cystic duct was bluntly dissected until the union of the cystic duct and common bile duct was seen. The cystic duct was then divided and sealed with the Harmonic scissors. A PDS Endoloop was then placed throughout the cystic duct stump. The cystic artery divided and sealed with the Harmonic scissors. The gallbladder was then removed from the liver bed using Harmonic scissors. The gallbladder was then extracted through the epigastric port site. Operative field was checked for any bleeding spots and Harmonic scissors was used to coagulate the liver bed. The abdomen was irrigated. The trocars were removed. The skin was closed using interrupted 3-0 Vicryl suture. Dermabond dressing were applied. The patient tolerated the procedure well.
[2016-07-15 13:55] LABS: Glucose,Whole Blood 227 mg/dL (75-99)
[2016-07-15 13:56] LABS: Hemoglobin A1C 11.1 % (4.2-6.1)
[2016-07-15] MEDS: KETOROLAC 30 MG/ML 1 ML VIAL IVP SCH ×2 (13:58→19:39)
[2016-07-15] MEDS ORDERED: METOCLOPRAMIDE 5 MG/ML 2 ML VIAL IVP ONE (14:08)
[2016-07-15] MEDS ORDERED: INSULIN LISPRO (humaLOG) 300 UNIT/3 ML VIAL SQ ONE (14:33)
[2016-07-15 14:38] VITALS: BMI 26.5
--- NOTE | 2016-07-15 14:43 | P.PN ---
Subjective This is a pleasant 35-year-old lady patient of Dr. Rivera. She has underlying history of diabetes mellitus type 2, hyperlipidemia, and recent hysterectomy laparoscopy robotic-assisted secondary to menometrorrhagia, patient was admitted secondary to abdominal pain which started 1 day prior to admission accompanied by nausea no fever no chills no diarrhea patient has bloating off and on without any jaundice. In the emergency room she was evaluated and found her to be suffering from acute pancreatitis also with ill-defined swelling in the distal body of the pancreas and the tail of the pancreas, amylase was normal however the original lipase evaluation cannot be treated as the patient's serum has been very lipemic , fasting lipase is elevated at 675, fasting triglyceride 2495 urinalysis normal RBC [address] findings show new 4.5 cm right adnexal or ovarian cyst favoring ovarian cyst, needs to be monitored patient, fatty liver noted, no suspicious enhancement representing necrosis Also ultrasound of the gallbladder shows small degree of sludge without ultrasound evidence of acute cholecystitis, and bile duct wall within normal limits, and bile duct 0.4 cm the bladder wall 0.2 cm a consult was made with Dr. Hubbard general surgery she currently is nothing by mouth 07/15: Repeat lipase is 275. Patient is status post laparoscopic cholecystectomy with Dr. Hubbard. Objective - Vital Signs Vital signs: Vital Signs Temp 98.3 F 07/15/16 07:00 Pulse 102 H 07/15/16 07:00 Resp 18 07/15/16 07:00 BP 101/60 07/15/16 07:00 Pulse Ox 94 L 07/15/16 07:00 Intake & Output 07/14/16 07/15/16 07/15/16 18:59 06:59 18:59 Intake Total 785 1510 Balance 785 1510 Intake: Intake, IV Titration 785 920 Amount Sodium Chloride 0.9% 1, 785 920 000 ml @ 115 mls/hr IV . Q8H42M [facility] Rx#:[id number] Oral 590 Other: Voiding Method Toilet Toilet # Voids 3 1 - Exam General appearance: cooperative, no acute distress - EENT Eyes: anicteric sclerae, EOMI, PERRLA, normal appearance ENT: hard of hearing, NA/AT, normal oropharynx - Neck Neck: no lymphadenopathy, normal ROM, no other, no rigidity, no stridor, no thyromegaly - Respiratory Respiratory: bilateral: CTA, negative: diminished, dullness, rales, rhonchi, wheezing, prolonged expiration, prolonged inspiration - Cardiovascular Rhythm: regular Heart sounds: normal: S1, S2 Abnormal Heart Sounds: no systolic murmur, no diastolic murmur, no rub, no S3 Gallop, no S4 Gallop, no click, no other - Gastrointestinal General gastrointestinal: soft Localized gastrointestinal: tender: diffuse, epigastric periumbilical - Integumentary Integumentary: normal, normal turgor - Neurologic Neurologic: CNII-XII intact - Musculoskeletal Musculoskeletal: gait normal, strength equal bilaterally - Psychiatric Psychiatric: A&O x's 3, appropriate affect, intact judgment & insight - Labs CBC & Chem 7: 07/15/16 08:46 07/15/16 08:46 Labs: Abnormal Lab Results - Last 24 Hours (Table) 07/14/16 07/14/16 07/14/16 Range/Units 08:35 08:35 09:53 POC Glucose (mg/dL) 277 H (75-99) mg/dL Triglycerides 2495 H (<150) mg/dL Cholesterol 320 H (<200) mg/dL HDL Cholesterol 36 L (40-60) mg/dL Lipase 675 H (23-300) U/L 07/14/16 07/14/16 07/14/16 Range/Units 11:43 17:09 19:47 POC Glucose (mg/dL) 221 H 225 H 322 H (75-99) mg/dL Triglycerides (<150) mg/dL Cholesterol (<200) mg/dL HDL Cholesterol (40-60) mg/dL Lipase (23-300) U/L 07/15/16 Range/Units 07:31 POC Glucose (mg/dL) 214 H (75-99) mg/dL Triglycerides (<150) mg/dL Cholesterol (<200) mg/dL HDL Cholesterol (40-60) mg/dL Lipase (23-300) U/L Assessment and Plan Plan: 1. Pancreatitis secondary to significant lipemia and elevated triglycerides status post laparoscopic cholecystectomy. 2. Hyperlipidemia patient was advised on dietary modifications again 3. Uncontrolled diabetes mellitus with hemoglobin A1c of 11.3, patient was type II with recent diagnosis and has been off metformin, patient will be started on Lantus 20 units daily and NovoLog sliding scale. Patient most likely would be titrated down to her orals 4. Hyperosmolar nonketotic hyperglycemia, with dehydration, no ketones noted on clinical laboratories, patient maintains hydration, diabetes management with compliance as well as Lantus and oral agents 5. Fatty liver related liver function test secondary to dietary negligence 6. Dehydration, IV fluids were given, 1 L for hemodynamic instability in view off the current pending despite this GI Prophylaxis and DVT prophylaxis Protonix and JABIER hose Discharge plan: Return home Impression and plan of care have been directed as dictated by the signing physician. Johnna Barton nurse practitioner acting as scribe for signing physician. Time with Patient: Greater than 30
[2016-07-15 17:21] LABS: Glucose,Whole Blood 229 mg/dL (75-99)
[2016-07-15 20:13] LABS: Glucose,Whole Blood 385 mg/dL (75-99)
[2016-07-15] MEDS: INSULIN GLARGINE 100 UNIT/ML 10 ML VIAL SQ SCH (20:36)
[2016-07-16] MEDS: KETOROLAC 30 MG/ML 1 ML VIAL IVP SCH ×2 (01:33→08:48)
[2016-07-16 07:14] LABS: Glucose,Whole Blood 176 mg/dL (75-99)
[2016-07-16 07:57] VITALS: BP 116/72; PULSE 88; RESP 18; TEMP 98.2
[2016-07-16 08:20] LABS: Basophils % (A) 0 %; CH 30.9; CHCM 32.8; Eosinophils % (A) 0 %; HCT 34.7 % (34.0-46.0); HDW 2.74; HGB 11.4 gm/dL (11.4-16.0); Luc # (Auto) 0.13; Luc % (Auto) 1; Lymphocytes % (A) 11 %; MCH 31.1 pg (25.0-35.0); MCHC 32.8 g/dL (31.0-37.0); MCV 94.9 fL (80.0-100.0); Monocytes # (A) 0.3 k/uL (0-1.0); Monocytes % (A) 3 %; Neutrophils # (A) 7.8 k/uL (1.3-7.7); Neutrophils % (A) 84 %; RBC 3.65 m/uL (3.80-5.40); RDW 13.5 % (11.5-15.5); WBC 9.3 k/uL (3.8-10.6); WBC (Perox) 9.38
[2016-07-16 08:25] LABS: ALT 72 U/L (9-52); AST 76 U/L (14-36); Alkaline Phosphatase 119 U/L (38-126); Anion Gap 9 mmol/L; Blood Urea Nitrogen 6 mg/dL (7-17); Calcium 9.1 mg/dL (8.4-10.2); Carbon Dioxide 20 mmol/L (22-30); Chloride 107 mmol/L (98-107); Glucose 162 mg/dL (74-99); Non-African American GFR(MDRD) >60 (>60 ml/min/1.73 sqM); Potassium 3.6 mmol/L (3.5-5.1); Sodium 136 mmol/L (137-145); Total Bilirubin 0.7 mg/dL (0.2-1.3); Total Protein 6.1 g/dL (6.3-8.2)
[2016-07-16] MEDS: INSULIN LISPRO (humaLOG) 300 UNIT/3 ML VIAL SQ SCH ×2 (08:35→13:12)
[2016-07-16] MEDS: PANTOPRAZOLE 40 MG/10 ML VIAL IV SCH (08:35)
[2016-07-16] MEDS ORDERED: ENOXAPARIN 40 MG/0.4 ML SYRINGE SQ SCH (09:00)
[2016-07-16 12:04] LABS: Glucose,Whole Blood 208 mg/dL (75-99)
--- NOTE | 2016-07-16 14:04 | P.DS ---
Providers Date of admission: 07/13/16 18:41 Expected date of discharge: 07/16/16 Attending physician: Natalee Briscoe Primary care physician: Robinson Gottlieb [facility] Course: This is a pleasant 35-year-old lady patient of Dr. Gottlieb. She has underlying history of diabetes mellitus type 2, hyperlipidemia, and recent hysterectomy laparoscopy robotic-assisted secondary to menometrorrhagia, patient was admitted secondary to abdominal pain which started 1 day prior to admission accompanied by nausea no fever no chills no diarrhea patient has bloating off and on without any jaundice. In the emergency room she was evaluated and found her to be suffering from acute pancreatitis also with ill-defined swelling in the distal body of the pancreas and the tail of the pancreas, amylase was normal however the original lipase evaluation cannot be treated as the patient's serum has been very lipemic , fasting lipase is elevated at 675, fasting triglyceride 2495 urinalysis normal RBC [address] findings show new 4.5 cm right adnexal or ovarian cyst favoring ovarian cyst, needs to be monitored patient, fatty liver noted, no suspicious enhancement representing necrosis Also ultrasound of the gallbladder shows small degree of sludge without ultrasound evidence of acute cholecystitis, and bile duct wall within normal limits, and bile duct 0.4 cm the bladder wall 0.2 cm a consult was made with Dr. Hubbard general surgery she currently is nothing by mouth 07/15: Repeat lipase is 275. Patient is status post laparoscopic cholecystectomy with Dr. Hubbard. 07/16: Patient is tolerating a regular diet and has been cleared by Dr. Hubbard for discharge. Abdominal pain is improved and lipase has normalized to 117. Patient will be discharged home today in stable condition. Discharge diagnoses: 1. Pancreatitis secondary to significant lipemia and elevated triglycerides and gallstone pancreatitis status post laparoscopic cholecystectomy 2. Hyperlipidemia 3. Uncontrolled diabetes mellitus type 2 with hemoglobin A1c of 11.3 4. Hyperosmolar nonketotic hyperglycemia, with dehydration 5. Fatty liver related liver function test secondary to dietary negligence 6. Dehydration Discharge plan: Return home Impression and plan of care have been directed as dictated by the signing physician. Johnna Barton nurse practitioner acting as scribe for signing physician. Cc: Dr. Robinson Gottlieb Patient Condition at Discharge: Good Plan - Discharge Summary New Discharge Prescriptions: Docusate [Colace] 100 mg PO BID #20 capsule Glimepiride [Amaryl] 0.5 mg PO AC-BRKFST #30 dose HYDROcodone/APAP 7.5-325MG [[place] 7.5-325] 1 tab PO Q6HR PRN #28 tab PRN Reason: Pain Insulin Glargine,Hum.rec.anlog [Lantus Solostar] 20 unit SQ HS #5 pen Discharge Medication List Chromium Picolinate 200 mcg PO BID 07/13/16 [History] Docusate [Colace] 100 mg PO BID #20 capsule 07/15/16 [Rx] HYDROcodone/APAP 7.5-325MG [[place] 7.5-325] 1 tab PO Q6HR PRN #28 tab 07/15/16 [ Rx] Glimepiride [Amaryl] 0.5 mg PO AC-BRKFST #30 dose 07/16/16 [Rx] Insulin Glargine,Hum.rec.anlog [Lantus Solostar] 20 unit SQ HS #5 pen 07/16/16 [ Rx] Follow up Appointment(s)/Referral(s): Robinson Gottlieb MD [Primary Care Provider] - 07/24/16 8:30 am Marek Hubbard MD [STAFF PHYSICIAN] - 07/23/16 4:00 pm Patient Instructions/Handouts: *Surgery [facility] - Laparoscopic Cholecystectomy Discharge Instructions, Hydrocodone/Acetaminophen (By mouth), Laxative, Stool Softeners (By mouth), Glimepiride (By mouth), Insulin Glargine (By injection), Type 1 Diabetes in Adults (DC), Basic Carbohydrate Counting (GEN), Insulin Pens (DC), Hemoglobin A1c (GEN) Activity/Diet/Wound Care/Special Instructions: No heavy lifting, pushing, or pulling items greater than 10 pounds. Low fat diet. Shower daily, no soaking in bath tubs, pools, or hot tubs. No driving while taking pain medication. Notify surgeon with any signs or symptoms of infection, increased pain, or not tolerating diet. Discharge Disposition: HOME SELF-CARE
--- NOTE | 2016-07-16 14:54 | P.PN ---
Subjective Patient is status post laparoscopic cholecystectomy, postop day #1. Patient is doing well. Denies chills, fevers, nausea, vomiting, shortness of breath, chest pain, or leg pain. Incisional pain controlled with current pain regimen. Patient is urinating without difficulty. Patient is tolerating a low-fat diet. Patient is passing flatus without bowel movement. Afebrile. No evidence of leukocytosis. Lipase normal. AST and ALT slightly elevated from yesterday. Objective - Vital Signs Vital signs: Vital Signs Temp 98.2 F 07/16/16 07:00 Pulse 88 07/16/16 08:00 Resp 18 07/16/16 08:00 BP 116/72 07/16/16 07:00 Pulse Ox 92 L 07/16/16 07:00 Intake & Output 07/15/16 07/16/16 07/16/16 18:59 06:59 18:59 Intake Total 1610 100 Output Total 5 Balance 1605 100 Weight 65.771 kg 65.771 kg Intake: IV 1550 Intake, IV Titration 100 Amount Lactated Ringers 1,000 ml 100 @ 100 mls/hr IV .Q10H ONE Rx#:[id number] Oral 60 Output: Estimated Blood Loss 5 Other: Voiding Method Toilet Toilet Toilet # Voids 1 2 - Exam GENERAL: Pt awake and alert, well-appearing, well-nourished, and in no acute distress. LUNGS: Breath sounds clear to auscultation bilaterally. No wheezes, rales, or rhonchi. HEART: Heart S1, S2, no S3 or S4. Regular rate and rhythm. No murmurs, rubs or gallops. ABDOMEN: Soft, mild incisional tenderness, nondistended, normoactive bowel sounds. No guarding, no rebound. No masses or organomegaly appreciated. Laparoscopic surgical incisions dry, no erythema or drainage. Dermabond intact. EXTREMITIES: 2+ peripheral pulses. NEUROLOGICAL: Pt oriented x 3. - Labs CBC & Chem 7: 07/16/16 07:35 07/16/16 07:35 Labs: Abnormal Lab Results - Last 24 Hours (Table) 07/15/16 07/15/16 07/16/16 Range/Units 17:18 20:11 07:07 RBC (3.80-5.40) m/uL Neutrophils # (1.3-7.7) k/uL Sodium (137-145) mmol/L Carbon Dioxide (22-30) mmol/L BUN (7-17) mg/dL Creatinine (0.52-1.04) mg/dL Glucose (74-99) mg/dL POC Glucose (mg/dL) 229 H 385 H 176 H (75-99) mg/dL AST (14-36) U/L ALT (9-52) U/L Total Protein (6.3-8.2) g/dL Albumin (3.5-5.0) g/dL 07/16/16 07/16/16 07/16/16 Range/Units 07:35 07:35 12:02 RBC 3.65 L (3.80-5.40) m/uL Neutrophils # 7.8 H (1.3-7.7) k/uL Sodium 136 L (137-145) mmol/L Carbon Dioxide 20 L (22-30) mmol/L BUN 6 L (7-17) mg/dL Creatinine 0.48 L (0.52-1.04) mg/dL Glucose 162 H (74-99) mg/dL POC Glucose (mg/dL) 208 H (75-99) mg/dL AST 76 H (14-36) U/L ALT 72 H (9-52) U/L Total Protein 6.1 L (6.3-8.2) g/dL Albumin 3.2 L (3.5-5.0) g/dL Assessment and Plan Plan: Impression: Gallstone pancreatitis status post laparoscopic cholecystectomy Plan: Continue to monitor patient. Continue supportive treatment and pain management. Continue low-fat diet. From a surgical standpoint patient is stable for discharge. Patient will follow-up with Dr. Hubbard in one week. The above impression and plan have been discussed and directed by Dr. Hubbard. Magdi GARCIA acting as scribe for Dr. Hubbard.
== END 2016-07-16 14:45 | disposition home or self-care (01) | DRG 417 ==
LOC: EC 14:02 → 5MS5E 18:41
PROVIDERS: ADMIT Family Medicine; ATTEND Family Medicine
PROC: 0FT44ZZ Resection of Gallbladder, Percutaneous Endoscopic Approach (ICD-10-PCS; principal; 2016-07-15 08:40)
DX: K85.10 Biliary acute pancreatitis without necrosis or infection (principal); E11.00 Type 2 diabetes mellitus with hyperosmolarity without nonketotic hyperglycemic-hyperosmolar coma (NKHHC); E11.65 Type 2 diabetes mellitus with hyperglycemia; K76.0 Fatty (change of) liver, not elsewhere classified; E86.0 Dehydration; E78.1 Pure hyperglyceridemia; K82.8 Other specified diseases of gallbladder; N83.201 Unspecified ovarian cyst, right side; R74.0 Nonspecific elevation of levels of transaminase and lactic acid dehydrogenase [LDH]; T38.3X6A Underdosing of insulin and oral hypoglycemic [antidiabetic] drugs, initial encounter; K80.20 Calculus of gallbladder without cholecystitis without obstruction; R11.0 Nausea; E78.5 Hyperlipidemia, unspecified; Z83.3 Family history of diabetes mellitus; Z79.899 Other long term (current) drug therapy; Z71.3 Dietary counseling and surveillance; Z91.11 Patient's noncompliance with dietary regimen; Z90.710 Acquired absence of both cervix and uterus; Z87.19 Personal history of other diseases of the digestive system; Z98.51 Tubal ligation status
CPT/HCPCS: 36415; 74000; 74177; 76705; 80053; 80061; 81001; 82150; 83036; 83690; 83735; 85025; 88304

== ENCOUNTER → 2016-10-16 | Outpatient (CLI) | payer BC, OTHER ==
[2016-10-16 11:08] LABS: ALT 44 U/L (9-52); AST 26 U/L (14-36); Alkaline Phosphatase 88 U/L (38-126); Anion Gap 10 mmol/L; Blood Urea Nitrogen 14 mg/dL (7-17); Calcium 9.3 mg/dL (8.4-10.2); Carbon Dioxide 24 mmol/L (22-30); Chloride 103 mmol/L (98-107); Cholesterol 284 mg/dL (<200); Glucose 138 mg/dL (74-99); HDL Cholesterol 34 mg/dL (40-60); Non-African American GFR(MDRD) >60 (>60 ml/min/1.73 sqM); Potassium 4.7 mmol/L (3.5-5.1); Sodium 137 mmol/L (137-145); Total Bilirubin 0.5 mg/dL (0.2-1.3); Total Protein 7.7 g/dL (6.3-8.2)
[2016-10-16 11:26] LABS: Triglycerides 1052 mg/dL (<150)
[2016-10-16 15:42] LABS: Urine Creatinine 104.3 mg/dL
== END | disposition home or self-care (01) ==
LOC: LABWHC1 09:42
PROVIDERS: ATTEND Internal Medicine Endocrinology, Diabetes & Metabolism
DX: E11.65 Type 2 diabetes mellitus with hyperglycemia (principal)
CPT/HCPCS: 36415; 80053; 80061; 82043; 82570; 84443

== ENCOUNTER → 2017-01-24 | Outpatient (CLI) | payer BC, OTHER | END | disposition home or self-care (01) | LOC: LABWHC1 08:35 | PROVIDERS: ATTEND Internal Medicine Endocrinology, Diabetes & Metabolism | DX: E11.65 Type 2 diabetes mellitus with hyperglycemia (principal) | CPT/HCPCS: 36415; 80061; 84443 ==

== ENCOUNTER → 2017-05-01 | Outpatient (CLI) | payer BC ==
[2017-05-01 09:46] LABS: ALT 79 U/L (9-52); AST 48 U/L (14-36); Albumin 4.6 g/dL (3.5-5.0); Alkaline Phosphatase 66 U/L (38-126); Anion Gap 15 mmol/L; Blood Urea Nitrogen 18 mg/dL (7-17); Carbon Dioxide 24 mmol/L (22-30); Chloride 102 mmol/L (98-107); Cholesterol 254 mg/dL (<200); Glucose 140 mg/dL (74-99); HDL Cholesterol 44 mg/dL (40-60); LDL Cholesterol,Calculated 161 mg/dL (0-99); Potassium 4.9 mmol/L (3.5-5.1); Sodium 141 mmol/L (137-145); Total Bilirubin 0.5 mg/dL (0.2-1.3); Total Protein 7.5 g/dL (6.3-8.2); Triglycerides 246 mg/dL (<150)
[2017-05-01 18:48] LABS: Hemoglobin A1C 6.6 % (4.0-6.0)
== END | disposition home or self-care (01) ==
LOC: LABWHC1 08:32
PROVIDERS: ATTEND Internal Medicine Endocrinology, Diabetes & Metabolism
DX: E78.5 Hyperlipidemia, unspecified (principal)
CPT/HCPCS: 36415; 80053; 80061; 83036

== ENCOUNTER → 2017-05-06 | Outpatient (CLI) | payer BC | END | disposition home or self-care (01) | LOC: PTMAIN 12:55 | PROVIDERS: ATTEND Otolaryngology | DX: K21.9 Gastro-esophageal reflux disease without esophagitis (principal) | CPT/HCPCS: 31579 ==

== ENCOUNTER → 2017-08-21 | Outpatient (CLI) | payer BC ==
[2017-08-21 09:16] LABS: ALT 67 U/L (9-52); AST 52 U/L (14-36); Albumin 4.7 g/dL (3.5-5.0); Alkaline Phosphatase 65 U/L (38-126); Anion Gap 12 mmol/L; Blood Urea Nitrogen 14 mg/dL (7-17); Calcium 9.7 mg/dL (8.4-10.2); Carbon Dioxide 25 mmol/L (22-30); Chloride 104 mmol/L (98-107); Cholesterol 218 mg/dL (<200); Glucose 153 mg/dL (74-99); HDL Cholesterol 40 mg/dL (40-60); LDL Cholesterol,Calculated 119 mg/dL (0-99); Potassium 5.1 mmol/L (3.5-5.1); Sodium 141 mmol/L (137-145); Total Bilirubin 0.4 mg/dL (0.2-1.3); Total Protein 7.4 g/dL (6.3-8.2); Triglycerides 294 mg/dL (<150)
[2017-08-21 21:08] LABS: Hemoglobin A1C 6.9 % (4.0-6.0)
== END | disposition home or self-care (01) ==
LOC: LABWHC1 08:36
PROVIDERS: ATTEND Internal Medicine Endocrinology, Diabetes & Metabolism
DX: E11.65 Type 2 diabetes mellitus with hyperglycemia (principal)
CPT/HCPCS: 36415; 80053; 80061; 83036

== ENCOUNTER → 2017-11-27 | Outpatient (CLI) | payer BC ==
[2017-11-27 09:20] LABS: ALT 68 U/L (9-52); AST 48 U/L (14-36); Albumin 4.5 g/dL (3.5-5.0); Alkaline Phosphatase 62 U/L (38-126); Anion Gap 7 mmol/L; Blood Urea Nitrogen 17 mg/dL (7-17); Calcium 9.9 mg/dL (8.4-10.2); Carbon Dioxide 27 mmol/L (22-30); Chloride 105 mmol/L (98-107); Cholesterol 224 mg/dL (<200); Glucose 162 mg/dL (74-99); HDL Cholesterol 43 mg/dL (40-60); LDL Cholesterol,Calculated 145 mg/dL (0-99); Potassium 5.2 mmol/L (3.5-5.1); Sodium 139 mmol/L (137-145); Total Bilirubin 0.4 mg/dL (0.2-1.3); Total Protein 7.5 g/dL (6.3-8.2); Triglycerides 182 mg/dL (<150)
[2017-11-27 16:54] LABS: Hemoglobin A1C 7.4 % (4.0-6.0)
== END | disposition home or self-care (01) ==
LOC: LABWHC1 08:10
PROVIDERS: ATTEND Internal Medicine Endocrinology, Diabetes & Metabolism
DX: E11.65 Type 2 diabetes mellitus with hyperglycemia (principal)
CPT/HCPCS: 36415; 80053; 80061; 82043; 82570; 83036; 84443

== ENCOUNTER → 2018-05-15 | Outpatient (CLI) | payer BC ==
[2018-05-15 18:54] LABS: Albumin 4.4 g/dL (3.80-4.90); Albumin/Globulin Ratio 2.1 (1.60-3.17); Calcium 9.4 mg/dL (8.7-10.3); Globulin 2.1 g/dL (1.6-3.3); LDL Cholesterol,Calculated 112.8 mg/dL (0.0-131.0); Potassium 4.5 mmol/L (3.5-5.5); Total Bilirubin 0.3 mg/dL (0.2-1.2); Total Protein 6.5 g/dL (6.2-8.2); VLDL Calculation 53.2 mg/dL (5.00-40.00)
[2018-05-15 19:43] LABS: Hemoglobin A1C 7.8 % (4.0-6.0)
== END ==
LOC: LABWHC1 07:48
PROVIDERS: ATTEND Internal Medicine Endocrinology, Diabetes & Metabolism
DX: E11.65 Type 2 diabetes mellitus with hyperglycemia (principal)
CPT/HCPCS: 36415; 80053; 80061; 82043; 82570; 83036; 84443

== ENCOUNTER → 2018-10-01 | Outpatient (CLI) | payer BC ==
[2018-10-01 16:55] LABS: ALT 47 U/L (8-44); AST 31 U/L (13-35); African American GFR (CKD) 109.9 (60.0-200.0); Albumin/Globulin Ratio 2.05 (1.60-3.17); Alkaline Phosphatase 72 U/L (41-126); BUN/Creat Ratio 21.25 Ratio (12.00-20.00); Calcium 9.6 mg/dL (8.7-10.3); Carbon Dioxide 25.6 mmol/L (21.6-31.8); Chloride 103 mmol/L (96-109); Cholesterol 248 mg/dL (0-200); Globulin 2.2 g/dL (1.6-3.3); Glucose 196 mg/dL (70-110); Potassium 4.6 mmol/L (3.5-5.5); Sodium 137 mmol/L (135-145); Total Bilirubin 0.3 mg/dL (0.3-1.2); Total Protein 6.7 g/dL (6.2-8.2)
== END | disposition home or self-care (01) ==
LOC: LABWHC1 09:36
PROVIDERS: ATTEND Internal Medicine Endocrinology, Diabetes & Metabolism
DX: E11.65 Type 2 diabetes mellitus with hyperglycemia (principal)
CPT/HCPCS: 36415; 80053; 80061; 82043; 82570; 83036; 83721; 84443

== ENCOUNTER → 2018-12-31 | Outpatient (CLI) | payer BC ==
[2018-12-31 16:17] LABS: African American GFR (CKD) 109.9 (60.0-200.0); Albumin 4.6 g/dL (3.80-4.90); Albumin/Globulin Ratio 2.3 (1.60-3.17); Anion Gap 12.5 mmol/L (4.00-12.00); BUN/Creat Ratio 21.25 Ratio (12.00-20.00); Calcium 9.7 mg/dL (8.7-10.3); Carbon Dioxide 23.5 mmol/L (21.6-31.8); Chol/HDL Ratio 5.73; LDL Cholesterol,Calculated 118.6 mg/dL (0.0-131.0); Potassium 4.3 mmol/L (3.5-5.5); Total Bilirubin 0.4 mg/dL (0.2-1.2); Total Protein 6.6 g/dL (6.2-8.2); VLDL Calculation 56.4 mg/dL (5.00-40.00)
== END | disposition home or self-care (01) ==
LOC: LABWHC1 08:29
PROVIDERS: ATTEND Internal Medicine Endocrinology, Diabetes & Metabolism
DX: E11.65 Type 2 diabetes mellitus with hyperglycemia (principal)
CPT/HCPCS: 36415; 80053; 80061; 82043; 82570; 83036; 84443

== ENCOUNTER 2019-04-23 15:54 | Emergency (ER) | payer BC ==
[2019-04-23 16:19] LABS: Basophils # (A) 0.1 k/uL (0-0.2); Basophils % (A) 1 %; Eosinophils # (A) 0.2 k/uL (0-0.7); Eosinophils % (A) 3 %; HCT 46.8 % (34.0-46.0); HGB 15.3 gm/dL (11.4-16.0); Lymphocytes % (A) 27 %; MCH 29.6 pg (25.0-35.0); MCHC 32.7 g/dL (31.0-37.0); MCV 90.6 fL (80.0-100.0); Monocytes # (A) 0.3 k/uL (0-1.0); Monocytes % (A) 4 %; Neutrophils # (A) 4.8 k/uL (1.3-7.7); Neutrophils % (A) 64 %; Platelet Count 232 k/uL (150-450); RBC 5.16 m/uL (3.80-5.40); RDW 12.2 % (11.5-15.5); WBC 7.5 k/uL (3.8-10.6)
[2019-04-23 16:30] LABS: ALT 36 U/L (4-34); AST 36 U/L (14-36); African American GFR (CKD) >90 (>60 ml/min/1.73 sqM); Albumin 5.1 g/dL (3.5-5.0); Alkaline Phosphatase 47 U/L (38-126); Anion Gap 11 mmol/L; Blood Urea Nitrogen 18 mg/dL (7-17); Calcium 9.9 mg/dL (8.4-10.2); Carbon Dioxide 27 mmol/L (22-30); Chloride 97 mmol/L (98-107); Glucose 134 mg/dL (74-99); Non-African American GFR(CKD) 89 (>60 ml/min/1.73 sqM); Phosphorus 3.6 mg/dL (2.5-4.5); Potassium 3.9 mmol/L (3.5-5.1); Sodium 135 mmol/L (137-145); Total Bilirubin 0.7 mg/dL (0.2-1.3)
[2019-04-23] MEDS ORDERED: SODIUM CHLORIDE 0.9% 500 ML 500 ML IV STA (16:37)
[2019-04-23] MEDS ORDERED: ONDANSETRON 4 MG/2 ML VIAL IVP STA (16:37)
[2019-04-23 16:40] LABS: Appearance,Urine Clear (Clear); Bilirubin,Urine Negative (Negative); Blood,Urine Negative (Negative); Color,Urine Yellow; Glucose,Urine (UA) 4+ (Negative); Ketones,Urine 1+ (Negative); Leukocyte Esterase,Urine Negative (Negative); Nitrite,Urine Negative (Negative); PH, Urine 5.5 (5.0-8.0); Protein,Urine Negative (Negative); Specific Gravity,Urine 1.016 (1.001-1.035); Urobilinogen,Urine <2.0 mg/dL (<2.0)
[2019-04-23] MEDS ORDERED: SODIUM CHLORIDE 0.9% 1,000 ML IV STA (19:17)
--- NOTE | 2019-04-23 19:22 | ED ---
General Adult HPI - General Chief complaint: Abdominal Pain Stated complaint: nausea/vomiting/dizziness Time Seen by Provider: 04/23/19 16:35 Source: patient Mode of arrival: ambulatory Limitations: no limitations - History of Present Illness Initial comments: Dictation was produced using [employer] dictation software. please excuse any grammatical, word or spelling errors. Chief Complaint: 38-year-old female with type 2 diabetes since with nausea vomiting abdominal cramping and diarrhea. History of Present Illness: 38-year-old female for the last 48 hours patient has been having nausea vomiting diarrhea and abdominal cramping. Patient denies any overt sick contacts. She states that her diarrhea and emesis is nonbilious not bloody. States that she has diffuse abdominal pain. She has history of cholecystectomy. Patient still has her appendix. States that her pain is constant with frequent episodes of cramping. States that her pain is diffuse without any radiation. Denies any constitutional symptoms. Patient takes farx iga for diabetes. 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 The ROS documented in this emergency department record has been reviewed and confirmed by me. Those systems with pertinent positive or negative responses have been documented in the HPI. All other systems are other negative and/or noncontributory. PHYSICAL EXAM: General Impression: Alert and oriented x3, not in acute distress HEENT: Normocephalic atraumatic, extra-ocular movements intact, pupils equal and reactive to light bilaterally, dry mucous members Cardiovascular: Heart regular rate and rhythm, S1&S2 audible, no murmurs, rubs or gallops Chest: Lungs clear to auscultation bilaterally, no rhonchi, no wheeze, no rales Abdomen: Diffuse abdominal tenderness to palpation Musculoskeletal: Pulses present and equal in all extremities, no peripheral edema Motor: no focal deficits noted Neurological: CN II-XII grossly intact, no focal motor or sensory deficits noted Skin: Intact with no visualized rashes Psych: Normal affect and mood ED course: 38-year-old female presents with clinical presentation consistent with enteritis. Patient is a diabetic and takes diabetes medications. Vital signs upon arrival are within acceptable limits. Patient abdomen is soft without any concerns for surgical abdomen. Given the patient's history of diabetes is concern of metabolic acidosis. CBC is unremarkable. Metabolic panel shows no anion gap acidosis. Abdominal labs are negative. Patient has 4+ glucose and 1+ ketones in the urine and positive acetone. Patient's clinical presentation concerning for mild diabetic ketoacidosis. This is likely triggered by patient's diabetes medications. Patient did not want to be admitted to the hospital. She is aware that her symptoms are suggestive of mild diabetic ketoacidosis. Her labs do not suggest severe acidosis. She only has positive acetone and 1+ ketones. There is a c omponent of dehydration and starvation ketoacidosis given patient's recent poor intake. Patient was recommended and offered observation admission however she states that she can go home. She has her at home but to go for more for tomorrow in case she starts to get worse. She is agreeable to return to the emergency department if her symptoms acutely worsened. Patient given a starter pack ODT Zofran she is told to make sure she stays well-hydrated. 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 - Related Data Home Medications Medication Instructions Recorded Confirmed Chromium Picolinate 200 mcg PO BID 07/13/16 07/13/16 Previous Rx's Medication Instructions Recorded Docusate [Colace] 100 mg PO BID #20 capsule 07/15/16 HYDROcodone/APAP 7.5-325MG [[place] 1 tab PO Q6HR PRN #28 tab 07/15/16 7.5-325] Glimepiride [Amaryl] 0.5 mg PO AC-BRKFST #30 dose 07/16/16 Insulin Glargine,Hum.rec.anlog 20 unit SQ HS #5 pen 07/16/16 [Lantus Solostar] Allergies Allergy/AdvReac Type Severity Reaction Status Date / Time No Known Allergies Allergy Verified 04/23/19 15:58 Review of Systems ROS Statement: Those systems with pertinent positive or pertinent negative responses have been documented in the HPI. ROS Other: All systems not noted in ROS Statement are negative. Past Medical History Past Medical History: Diabetes Mellitus Additional Past Medical History / Comment(s): diverticulitis History of Any Multi-Drug Resistant Organisms: None Reported Past Surgical History: Hysterectomy, Tubal Ligation Additional Past Surgical History / Comment(s): WISDOM TEETH REMOVED UNDER ANESTHESIA, Past Anesthesia/Blood Transfusion Reactions: No Reported Reaction Past Psychological History: Anxiety Smoking Status: Never smoker Past Alcohol Use History: Occasional Past Drug Use History: None Reported - Past Family History Father Family Medical History: Diabetes Mellitus Brother(s) Family Medical History: No Reported History Sister(s) Family Medical History: No Reported History Daughter(s) Family Medical History: No Reported History Mother Family Medical History: No Reported History, Diabetes Mellitus General Exam Limitations: no limitations Course Vital Signs 04/23/19 04/23/19 04/23/19 15:56 15:58 16:58 Temperature 98.2 F Pulse Rate 99 90 Respiratory 20 20 20 Rate Blood Pressure 135/82 130/83 O2 Sat by Pulse 98 99 Oximetry 04/23/19 04/23/19 04/23/19 17:58 18:58 19:00 Temperature Pulse Rate 90 92 88 Respiratory 20 20 20 Rate Blood Pressure 130/75 128/72 O2 Sat by Pulse 99 98 98 Oximetry Medical Decision Making - Lab Data Result diagrams: 04/23/19 16:05 04/23/19 16:05 Lab Results 04/23/19 04/23/19 04/23/19 Range/Units 16:05 16:05 16:05 WBC 7.5 (3.8-10.6) k/uL RBC 5.16 (3.80-5.40) m/uL Hgb 15.3 (11.4-16.0) gm/dL Hct 46.8 H (34.0-46.0) % MCV 90.6 (80.0-100.0) fL MCH 29.6 (25.0-35.0) pg MCHC 32.7 (31.0-37.0) g/dL RDW 12.2 (11.5-15.5) % Plt Count 232 (150-450) k/uL Neutrophils % 64 % Lymphocytes % 27 % Monocytes % 4 % Eosinophils % 3 % Basophils % 1 % Neutrophils # 4.8 (1.3-7.7) k/uL Lymphocytes # 2.0 (1.0-4.8) k/uL Monocytes # 0.3 (0-1.0) k/uL Eosinophils # 0.2 (0-0.7) k/uL Basophils # 0.1 (0-0.2) k/uL VBG pH (7.31-7.41) VBG pCO2 (37-51) mmHg VBG HCO3 (24-28) mmol/L Sodium 135 L (137-145) mmol/L Potassium 3.9 (3.5-5.1) mmol/L Chloride 97 L (98-107) mmol/L Carbon Dioxide 27 (22-30) mmol/L Anion Gap 11 mmol/L BUN 18 H (7-17) mg/dL Creatinine 0.85 (0.52-1.04) mg/dL Est GFR (CKD-EPI)AfAm >90 (>60 ml/min/1.73 sqM) Est GFR (CKD-EPI)NonAf 89 (>60 ml/min/1.73 sqM) Glucose 134 H (74-99) mg/dL Calcium 9.9 (8.4-10.2) mg/dL Phosphorus 3.6 (2.5-4.5) mg/dL Magnesium 2.0 (1.6-2.3) mg/dL Total Bilirubin 0.7 (0.2-1.3) mg/dL AST 36 (14-36) U/L ALT 36 H (4-34) U/L Alkaline Phosphatase 47 (38-126) U/L Total Protein 8.0 (6.3-8.2) g/dL Albumin 5.1 H (3.5-5.0) g/dL Lipase 202 (23-300) U/L Urine Color Urine Appearance (Clear) Urine pH (5.0-8.0) Ur Specific [place] (1.001-1.035) Urine Protein (Negative) Urine Glucose (UA) (Negative) Urine Ketones (Negative) Urine Blood (Negative) Urine Nitrite (Negative) Urine Bilirubin (Negative) Urine Urobilinogen (<2.0) mg/dL Ur Leukocyte Esterase (Negative) Acetone, Qual Positive (Negative) 04/23/19 04/23/19 Range/Units 16:34 19:35 WBC (3.8-10.6) k/uL RBC (3.80-5.40) m/uL Hgb (11.4-16.0) gm/dL Hct (34.0-46.0) % MCV (80.0-100.0) fL MCH (25.0-35.0) pg MCHC (31.0-37.0) g/dL RDW (11.5-15.5) % Plt Count (150-450) k/uL Neutrophils % % Lymphocytes % % Monocytes % % Eosinophils % % Basophils % % Neutrophils # (1.3-7.7) k/uL Lymphocytes # (1.0-4.8) k/uL Monocytes # (0-1.0) k/uL Eosinophils # (0-0.7) k/uL Basophils # (0-0.2) k/uL VBG pH 7.43 H (7.31-7.41) VBG pCO2 37 (37-51) mmHg VBG HCO3 24 (24-28) mmol/L Sodium (137-145) mmol/L Potassium (3.5-5.1) mmol/L Chloride (98-107) mmol/L Carbon Dioxide (22-30) mmol/L Anion Gap mmol/L BUN (7-17) mg/dL Creatinine (0.52-1.04) mg/dL Est GFR (CKD-EPI)AfAm (>60 ml/min/1.73 sqM) Est GFR (CKD-EPI)NonAf (>60 ml/min/1.73 sqM) Glucose (74-99) mg/dL Calcium (8.4-10.2) mg/dL Phosphorus (2.5-4.5) mg/dL Magnesium (1.6-2.3) mg/dL Total Bilirubin (0.2-1.3) mg/dL AST (14-36) U/L ALT (4-34) U/L Alkaline Phosphatase (38-126) U/L Total Protein (6.3-8.2) g/dL Albumin (3.5-5.0) g/dL Lipase (23-300) U/L Urine Color Yellow Urine Appearance Clear (Clear) Urine pH 5.5 (5.0-8.0) Ur Specific [place] 1.016 (1.001-1.035) Urine Protein Negative (Negative) Urine Glucose (UA) 4+ H (Negative) Urine Ketones 1+ H (Negative) Urine Blood Negative (Negative) Urine Nitrite Negative (Negative) Urine Bilirubin Negative (Negative) Urine Urobilinogen <2.0 (<2.0) mg/dL Ur Leukocyte Esterase Negative (Negative) Acetone, Qual (Negative) Disposition Clinical Impression: DKA (diabetic ketoacidoses) Disposition: HOME SELF-CARE Condition: Fair Instructions (If sedation given, give patient instructions): Diabetic Ketoacidosis (DC) Is patient prescribed a controlled substance at d/c from ED?: No Referrals: Robinson Gottlieb MD [Primary Care Provider] - 1-2 days Time of Disposition: 20:42
[2019-04-23 19:50] LABS: VBG PH 7.43 (7.31-7.41)
[2019-04-23] MEDS ORDERED: ONDANSETRON 4 MG ODT STARTER PACK 2 TAB BTL PO STA (20:41)
[2019-04-23 20:56] VITALS: BP 130/72; PULSE 82; RESP 18; TEMP 97.8
== END 2019-04-23 20:58 | disposition home or self-care (01) ==
LOC: EC 15:54
DX: E11.10 Type 2 diabetes mellitus with ketoacidosis without coma (principal); E86.0 Dehydration; R19.7 Diarrhea, unspecified; Z79.84 Long term (current) use of oral hypoglycemic drugs; Z79.899 Other long term (current) drug therapy; Z90.49 Acquired absence of other specified parts of digestive tract; Z83.3 Family history of diabetes mellitus; Z53.29 Procedure and treatment not carried out because of patient's decision for other reasons; Z53.8 Procedure and treatment not carried out for other reasons
CPT/HCPCS: 36415; 80053; 82803; 82009; 83690; 83735; 84100; 85025; 81003; 99284; 96374; 96361; J2405; S0119

== ENCOUNTER → 2019-08-12 | Outpatient (CLI) | payer BC ==
[2019-08-12 20:10] LABS: African American GFR (CKD) 95.3 (60.0-200.0); Albumin 4.4 g/dL (3.80-4.90); Anion Gap 2.6 mmol/L (4.00-12.00); BUN/Creat Ratio 15.56 Ratio (12.00-20.00); Calcium 9.6 mg/dL (8.7-10.3); Carbon Dioxide 28.4 mmol/L (21.6-31.8); Chol/HDL Ratio 3.56; Globulin 2.2 g/dL (1.6-3.3); LDL Cholesterol,Calculated 94.4 mg/dL (0.0-131.0); Non-African American GFR(CKD) 82.3 (60.0-200.0); Potassium 4.9 mmol/L (3.5-5.5); Total Bilirubin 0.4 mg/dL (0.3-1.2); Total Protein 6.6 g/dL (6.2-8.2); VLDL Calculation 20.6 mg/dL (5.00-40.00)
[2019-08-12 21:44] LABS: Urine Creatinine 36.6 mg/dL
[2019-08-12 22:25] LABS: Hemoglobin A1C 7.6 % (4.0-6.0)
== END | disposition home or self-care (01) ==
LOC: LABWHC1 12:10
PROVIDERS: ATTEND Internal Medicine Endocrinology, Diabetes & Metabolism
DX: E11.65 Type 2 diabetes mellitus with hyperglycemia (principal)
CPT/HCPCS: 36415; 80053; 80061; 82043; 82570; 83036; 84443

== ENCOUNTER → 2019-09-15 | Outpatient (CLI) | payer BC ==
--- NOTE | 2019-09-15 09:10 | MM ---
Reason for exam: clinical finding. History: Patient is postmenopausal. Indicated problem(s): lump or thickening in the right breast. Physical Findings: Nurse did not find any significant physical abnormalities on exam. MG Diagnostic Mammo w CAD LATOSHA Bilateral CC and MLO view(s) were taken. The breast tissue is heterogeneously dense. This may lower the sensitivity of mammography. Focal asymmetry upper outer quadrant right breast 7.5cm from nipple. These results were verbally communicated with the patient and result sheet given to the patient on 09/15/19. ASSESSMENT: Incomplete: need additional imaging evaluation, BI-RAD 0 RECOMMENDATION: Ultrasound of the right breast.
--- NOTE | 2019-09-15 09:15 | USB ---
Reason for exam: additional evaluation requested from abnormal screening. History: Patient is postmenopausal. US Breast Limited RT Right limited breast ultrasound including focal area of concern, retroareolar and axilla demonstrates a 0.4 x 0.3 x 0.2cm hypoechoic lesion at 10 o'clock. These results were verbally communicated with the patient and result sheet given to the patient on 09/15/19. ASSESSMENT: Probably benign, BI-RAD 3 RECOMMENDATION: Follow-up diagnostic mammogram of both breasts in 6 months.
== END | disposition home or self-care (01) ==
LOC: RADMAMWWP 07:13
PROVIDERS: ATTEND Obstetrics & Gynecology
DX: R92.8 Other abnormal and inconclusive findings on diagnostic imaging of breast (principal); N64.4 Mastodynia; N63.10 Unspecified lump in the right breast, unspecified quadrant
CPT/HCPCS: 77066

== ENCOUNTER → 2020-01-06 | Outpatient (CLI) | payer BC | END | disposition home or self-care (01) | LOC: LABWHC1 11:32 | PROVIDERS: ATTEND Otolaryngology | DX: J30.89 Other allergic rhinitis (principal) | CPT/HCPCS: 36415; 86001 ==

== ENCOUNTER → 2020-03-22 | Outpatient (CLI) | payer BC ==
--- NOTE | 2020-03-22 11:39 | USB ---
Reason for exam: follow-up at short interval from prior study. History: Patient is postmenopausal. Physical Findings: Nurse did not find any significant physical abnormalities on exam. US Breast Limited RT Right limited breast ultrasound including focal area of concern, retroareolar and axilla demonstrates a 0.4 x 0.2 x 0.4cm lobular lesion too small to characterize at 10 o'clock, stable from 09/15/19. These results were verbally communicated with the patient and result sheet given to the patient on 03/22/20. ASSESSMENT: Benign, BI-RAD 2 RECOMMENDATION: Routine screening mammogram of both breasts at age 42.
== END | disposition home or self-care (01) ==
LOC: RADUSWWP 11:06
PROVIDERS: ATTEND Obstetrics & Gynecology
DX: R92.8 Other abnormal and inconclusive findings on diagnostic imaging of breast (principal)

== ENCOUNTER → 2020-03-24 | Outpatient (CLI) | payer BC ==
[2020-03-24 20:25] LABS: African American GFR (CKD) 94.7 (60.0-200.0); Albumin 4.9 g/dL (3.80-4.90); Albumin/Globulin Ratio 2.13 (1.60-3.17); Anion Gap 7.5 mmol/L (4.00-12.00); BUN/Creat Ratio 17.78 Ratio (12.00-20.00); Calcium 9.6 mg/dL (8.7-10.3); Carbon Dioxide 27.5 mmol/L (21.6-31.8); Chol/HDL Ratio 3.8; Globulin 2.3 g/dL (1.6-3.3); LDL Cholesterol,Calculated 88.6 mg/dL (0.0-131.0); Non-African American GFR(CKD) 81.7 (60.0-200.0); Potassium 4.4 mmol/L (3.5-5.5); Total Bilirubin 0.4 mg/dL (0.2-1.2); Total Protein 7.2 g/dL (6.2-8.2); VLDL Calculation 48.4 mg/dL (5.00-40.00)
[2020-03-24 22:21] LABS: Urine Creatinine 103.2 mg/dL
== END | disposition home or self-care (01) ==
LOC: LABWHC1 10:21
PROVIDERS: ATTEND Internal Medicine Endocrinology, Diabetes & Metabolism
DX: E11.65 Type 2 diabetes mellitus with hyperglycemia (principal)
CPT/HCPCS: 36415; 80053; 80061; 82043; 82570; 83036; 84443

== ENCOUNTER → 2020-07-04 | Outpatient (CLI) | payer BC ==
[2020-07-04 22:53] LABS: Hemoglobin A1C 7.4 % (4.0-6.0)
[2020-07-05 19:21] LABS: African American GFR (CKD) 83.3 (60.0-200.0); Albumin 5.1 g/dL (3.80-4.90); Albumin/Globulin Ratio 2.43 (1.60-3.17); Anion Gap 17.5 mmol/L (4.00-12.00); Calcium 10.2 mg/dL (8.7-10.3); Carbon Dioxide 18.5 mmol/L (21.6-31.8); Chol/HDL Ratio 5.09; Globulin 2.1 g/dL (1.6-3.3); Non-African American GFR(CKD) 71.9 (60.0-200.0); Potassium 4.6 mmol/L (3.5-5.5); Total Bilirubin 0.4 mg/dL (0.3-1.2); Total Protein 7.2 g/dL (6.2-8.2)
== END | disposition home or self-care (01) ==
LOC: LABWHC1 10:03
PROVIDERS: ATTEND Internal Medicine Endocrinology, Diabetes & Metabolism
DX: E11.65 Type 2 diabetes mellitus with hyperglycemia (principal)
CPT/HCPCS: 36415; 80053; 80061; 83036; 83721; 84443

== ENCOUNTER → 2021-01-30 | Outpatient (CLI) | payer BC ==
[2021-01-30 19:03] LABS: Triglycerides >1100.00 mg/dL (0.00-149.00)
[2021-01-30 20:28] LABS: ALT 51 U/L (8-44); AST 32 U/L (13-35); African American GFR (CKD) 127.4 (60.0-200.0); Albumin 4.4 g/dL (3.8-4.9); Albumin/Globulin Ratio 1.91 (1.60-3.17); Alkaline Phosphatase 92 U/L (41-126); BUN/Creat Ratio 21.14 Ratio (12.00-20.00); Blood Urea Nitrogen 14.8 mg/dL (9.0-27.0); Calcium 9.1 mg/dL (8.7-10.3); Carbon Dioxide 20.5 mmol/L (21.6-31.8); Chloride 102 mmol/L (96-109); Globulin 2.3 g/dL (1.6-3.3); Glucose 181 mg/dL (70-110); Non-African American GFR(CKD) 109.9 (60.0-200.0); Potassium 4.2 mmol/L (3.5-5.5); Sodium 137 mmol/L (135-145); Total Bilirubin <0.20 mg/dL (0.30-1.20); Total Protein 6.7 g/dL (6.2-8.2)
== END | disposition home or self-care (01) ==
LOC: LABWHC1 08:22
PROVIDERS: ATTEND Internal Medicine Endocrinology, Diabetes & Metabolism
DX: E11.65 Type 2 diabetes mellitus with hyperglycemia (principal)
CPT/HCPCS: 36415; 80053; 80061; 82043; 82570; 83036; 83721; 84443

== ENCOUNTER 2021-03-17 15:46 | Emergency (ER) | payer BC ==
[2021-03-17 17:01] LABS: Glucose,Whole Blood 193 mg/dL (75-99)
[2021-03-17] MEDS ORDERED: ACETAMINOPHEN TAB 325 MG TAB PO STA (17:10)
[2021-03-17] MEDS ORDERED: METOCLOPRAMIDE 5 MG/ML 2 ML VIAL IVP STA (17:10)
[2021-03-17] MEDS ORDERED: SODIUM CHLORIDE 0.9% 2,000 ML IV ONE (17:10)
--- NOTE | 2021-03-17 17:25 | ED ---
General Adult HPI - General Chief complaint: Upper Respiratory Infection Stated complaint: swollen tonsils 3 weeks, couging,weakness Time Seen by Provider: 03/17/21 16:59 Source: patient, RN notes reviewed Mode of arrival: ambulatory Limitations: no limitations - History of Present Illness Initial comments: 40-year-old female presents emergency from chief complaint sore throat, cough, weakness. Patient states that this initially started with sore throat in which he had a tele health visits with her primary care physician was placed on amoxicillin. She had another visit with her insurance tele health in which they placed her on azithromycin, steroid mouthwash. Patient states that progressive worsening. She talked her primary care physician again who told increase her omeprazole. She was then seen last weekend urgent care and negative strep mono but did not have a COVID-19 test. Patient states that she seems worsening she's taken multiple antibiotics and steroids with no relief. Patient states she's been having some nausea vomiting related to the drainage. - Related Data Home Medications Medication Instructions Recorded Confirmed Chromium Picolinate 200 mcg PO BID 07/13/16 07/13/16 Previous Rx's Medication Instructions Recorded Docusate [Colace] 100 mg PO BID #20 capsule 07/15/16 HYDROcodone/APAP 7.5-325MG [Bartley 1 tab PO Q6HR PRN #28 tab 07/15/16 7.5-325] Glimepiride [Amaryl] 0.5 mg PO AC-BRKFST #30 dose 07/16/16 Insulin Glargine,Hum.rec.anlog 20 unit SQ HS #5 pen 07/16/16 [Lantus Solostar] Clindamycin HCl 300 mg PO Q6HR #40 cap 03/17/21 Metoclopramide [Reglan] 10 mg PO TID PRN #15 tab 03/17/21 Allergies Allergy/AdvReac Type Severity Reaction Status Date / Time No Known Allergies Allergy Verified 09/15/19 07:52 Review of Systems ROS Statement: Those systems with pertinent positive or pertinent negative responses have been documented in the HPI. ROS Other: All systems not noted in ROS Statement are negative. Past Medical History Past Medical History: Diabetes Mellitus Additional Past Medical History / Comment(s): diverticulitis History of Any Multi-Drug Resistant Organisms: None Reported Past Surgical History: Hysterectomy, Tubal Ligation Additional Past Surgical History / Comment(s): WISDOM TEETH REMOVED UNDER ANESTHESIA, Past Anesthesia/Blood Transfusion Reactions: No Reported Reaction Past Psychological History: Anxiety Smoking Status: Never smoker Past Alcohol Use History: Occasional Past Drug Use History: None Reported - Past Family History Father Family Medical History: Diabetes Mellitus Brother(s) Family Medical History: No Reported History Sister(s) Family Medical History: No Reported History Daughter(s) Family Medical History: No Reported History Mother Family Medical History: No Reported History, Diabetes Mellitus General Exam Limitations: no limitations General appearance: alert, in no apparent distress Head exam: Present: atraumatic, normocephalic, normal inspection Eye exam: Present: normal appearance, PERRL, EOMI. Absent: scleral icterus, conjunctival injection, periorbital swelling ENT exam: Present: mucous membranes moist, TM's normal bilaterally. Absent: normal oropharynx (Bilateral exudates noted) Neck exam: Present: normal inspection, full ROM. Absent: tenderness, m eningismus, lymphadenopathy Respiratory exam: Present: normal lung sounds bilaterally. Absent: respiratory distress, wheezes, rales, rhonchi, stridor Cardiovascular Exam: Present: normal rhythm, tachycardia, normal heart sounds. Absent: systolic murmur, diastolic murmur, rubs, gallop, clicks GI/Abdominal exam: Present: soft, normal bowel sounds. Absent: distended, tenderness, guarding, rebound, rigid Neurological exam: Present: alert, oriented X3 Skin exam: Present: warm, dry, intact, normal color. Absent: rash Course Vital Signs 03/17/21 03/17/21 16:51 20:21 Temperature 100.2 F H 98.6 F Pulse Rate 130 H 102 H Respiratory 20 18 Rate Blood Pressure 141/93 127/97 O2 Sat by Pulse 97 99 Oximetry Medical Decision Making - Medical Decision Making 40-year-old presented for tonsil issues. Patient CT lab unremarkable. Patient's had progressive symptoms along with the fever. Patient was placed on oral antibiotics follow-up with ENT return parameters were discussed. - Lab Data Result diagrams: 03/17/21 18:04 03/17/21 18:04 Lab Results 03/17/21 03/17/21 03/17/21 Range/Units 17:00 17:00 18:04 WBC 8.5 (3.8-10.6) k/uL RBC 4.75 (3.80-5.40) m/uL Hgb 14.5 (11.4-16.0) gm/dL Hct 43.0 (34.0-46.0) % MCV 90.6 (80.0-100.0) fL MCH 30.6 (25.0-35.0) pg MCHC 33.8 (31.0-37.0) g/dL RDW 12.3 (11.5-15.5) % Plt Count 345 (150-450) k/uL MPV 7.7 Neutrophils % 75 % Lymphocytes % 15 % Monocytes % 5 % Eosinophils % 2 % Basophils % 1 % Neutrophils # 6.4 (1.3-7.7) k/uL Lymphocytes # 1.3 (1.0-4.8) k/uL Monocytes # 0.4 (0-1.0) k/uL Eosinophils # 0.2 (0-0.7) k/uL Basophils # 0.1 (0-0.2) k/uL Sodium (137-145) mmol/L Potassium (3.5-5.1) mmol/L Chloride (98-107) mmol/L Carbon Dioxide (22-30) mmol/L Anion Gap mmol/L BUN (7-17) mg/dL Creatinine (0.52-1.04) mg/dL Est GFR (CKD-EPI)AfAm (>60 ml/min/1.73 sqM) Est GFR (CKD-EPI)NonAf (>60 ml/min/1.73 sqM) Glucose (74-99) mg/dL POC Glucose (mg/dL) 193 H (75-99) mg/dL POC Glu Nuclear Engineering Technician ID Willing, Rosalva Plasma Lactic Acid Jose C (0.7-2.0) mmol/L Calcium (8.4-10.2) mg/dL Total Bilirubin (0.2-1.3) mg/dL AST (14-36) U/L ALT (4-34) U/L Alkaline Phosphatase (38-126) U/L Total Protein (6.3-8.2) g/dL Albumin (3.5-5.0) g/dL Coronavirus (PCR) Not Detected (Not Detectd) Heterophile Antibody (Negative) Group A Strep Rapid (Negative) 03/17/21 03/17/21 03/17/21 Range/Units 18:04 18:04 18:04 WBC (3.8-10.6) k/uL RBC (3.80-5.40) m/uL Hgb (11.4-16.0) gm/dL Hct (34.0-46.0) % MCV (80.0-100.0) fL MCH (25.0-35.0) pg MCHC (31.0-37.0) g/dL RDW (11.5-15.5) % Plt Count (150-450) k/uL MPV Neutrophils % % Lymphocytes % % Monocytes % % Eosinophils % % Basophils % % Neutrophils # (1.3-7.7) k/uL Lymphocytes # (1.0-4.8) k/uL Monocytes # (0-1.0) k/uL Eosinophils # (0-0.7) k/uL Basophils # (0-0.2) k/uL Sodium 135 L (137-145) mmol/L Potassium 4.3 (3.5-5.1) mmol/L Chloride 95 L (98-107) mmol/L Carbon Dioxide 30 (22-30) mmol/L Anion Gap 10 mmol/L BUN 9 (7-17) mg/dL Creatinine 0.68 (0.52-1.04) mg/dL Est GFR (CKD-EPI)AfAm >90 (>60 ml/min/1.73 sqM) Est GFR (CKD-EPI)NonAf >90 (>60 ml/min/1.73 sqM) Glucose 198 H (74-99) mg/dL POC Glucose (mg/dL) (75-99) mg/dL POC Glu Nuclear Engineering Technician ID Plasma Lactic Acid Jose C 1.0 (0.7-2.0) mmol/L Calcium 10.1 (8.4-10.2) mg/dL Total Bilirubin 0.8 (0.2-1.3) mg/dL AST 27 (14-36) U/L ALT 21 (4-34) U/L Alkaline Phosphatase 92 (38-126) U/L Total Protein 8.0 (6.3-8.2) g/dL Albumin 4.4 (3.5-5.0) g/dL Coronavirus (PCR) (Not Detectd) Heterophile Antibody Negative (Negative) Group A Strep Rapid (Negative) 03/17/21 Range/Units 18:04 WBC (3.8-10.6) k/uL RBC (3.80-5.40) m/uL Hgb (11.4-16.0) gm/dL Hct (34.0-46.0) % MCV (80.0-100.0) fL MCH (25.0-35.0) pg MCHC (31.0-37.0) g/dL RDW (11.5-15.5) % Plt Count (150-450) k/uL MPV Neutrophils % % Lymphocytes % % Monocytes % % Eosinophils % % Basophils % % Neutrophils # (1.3-7.7) k/uL Lymphocytes # (1.0-4.8) k/uL Monocytes # (0-1.0) k/uL Eosinophils # (0-0.7) k/uL Basophils # (0-0.2) k/uL Sodium (137-145) mmol/L Potassium (3.5-5.1) mmol/L Chloride (98-107) mmol/L Carbon Dioxide (22-30) mmol/L Anion Gap mmol/L BUN (7-17) mg/dL Creatinine (0.52-1.04) mg/dL Est GFR (CKD-EPI)AfAm (>60 ml/min/1.73 sqM) Est GFR (CKD-EPI)NonAf (>60 ml/min/1.73 sqM) Glucose (74-99) mg/dL POC Glucose (mg/dL) (75-99) mg/dL POC Glu Nuclear Engineering Technician ID Plasma Lactic Acid Jose C (0.7-2.0) mmol/L Calcium (8.4-10.2) mg/dL Total Bilirubin (0.2-1.3) mg/dL AST (14-36) U/L ALT (4-34) U/L Alkaline Phosphatase (38-126) U/L Total Protein (6.3-8.2) g/dL Albumin (3.5-5.0) g/dL Coronavirus (PCR) (Not Detectd) Heterophile Antibody (Negative) Group A Strep Rapid Negative (Negative) Disposition Clinical Impression: Tonsillitis Disposition: HOME SELF-CARE Condition: Stable Instructions (If sedation given, give patient instructions): Tonsillitis (ED) Additional Instructions: Please follow up with ENT as directed.Please return to the Emergency Department if symptoms worsen or any other concerns. Prescriptions: Clindamycin HCl 300 mg PO Q6HR #40 cap Metoclopramide [Reglan] 10 mg PO TID PRN #15 tab PRN Reason: Nausea Is patient prescribed a controlled substance at d/c from ED?: No Referrals: Robinson Gottlieb MD [Primary Care Provider] - 1-2 days Time of Disposition: 20:37
[2021-03-17 18:21] LABS: Basophils # (A) 0.1 k/uL (0-0.2); Basophils % (A) 1 %; Eosinophils # (A) 0.2 k/uL (0-0.7); Eosinophils % (A) 2 %; HGB 14.5 gm/dL (11.4-16.0); Lymphocytes # (A) 1.3 k/uL (1.0-4.8); Lymphocytes % (A) 15 %; MCH 30.6 pg (25.0-35.0); MCHC 33.8 g/dL (31.0-37.0); MCV 90.6 fL (80.0-100.0); Mean Platelet Volume 7.7; Monocytes # (A) 0.4 k/uL (0-1.0); Monocytes % (A) 5 %; Neutrophils # (A) 6.4 k/uL (1.3-7.7); Neutrophils % (A) 75 %; Platelet Count 345 k/uL (150-450); RBC 4.75 m/uL (3.80-5.40); RDW 12.3 % (11.5-15.5); WBC 8.5 k/uL (3.8-10.6)
[2021-03-17 18:33] LABS: ALT 21 U/L (4-34); AST 27 U/L (14-36); African American GFR (CKD) >90 (>60 ml/min/1.73 sqM); Albumin 4.4 g/dL (3.5-5.0); Alkaline Phosphatase 92 U/L (38-126); Anion Gap 10 mmol/L; Blood Urea Nitrogen 9 mg/dL (7-17); Calcium 10.1 mg/dL (8.4-10.2); Carbon Dioxide 30 mmol/L (22-30); Chloride 95 mmol/L (98-107); Glucose 198 mg/dL (74-99); Non-African American GFR(CKD) >90 (>60 ml/min/1.73 sqM); Potassium 4.3 mmol/L (3.5-5.1); Sodium 135 mmol/L (137-145); Total Bilirubin 0.8 mg/dL (0.2-1.3)
--- NOTE | 2021-03-17 20:12 | CT ---
EXAMINATION TYPE: CT soft tissue neck w con DATE OF EXAM: 03/17/2021 COMPARISON: None HISTORY: Sore throat x [address] DLP: 200.2 mGycm Automated exposure control for dose reduction was used. CONTRAST: Performed with IV Contrast, patient injected with 100 mL of Isovue 300. Images obtained from the aortic arch to the mid orbits with IV contrast. There is normal branching pattern of the great vessels on the aortic arch. Ascending aorta measures 3 .3 cm. There is no dissection. There is no mediastinal adenopathy. Thyroid gland is symmetric. There is contrast opacification of the carotid arteries and jugular veins. There is arterial flow in both v ertebral arteries. Epiglottis is normal. Submandibular salivary glands are fairly symmetric. The paro tid glands are symmetric. Subglottic trachea appears normal. The tongue appears normal. Tonsils and adenoids appear within norm al limits. There is no evidence of pharyngeal mass. There is normal aeration of the maxillary sinuses . Sella turcica appears normal. The cervical vertebra have normal spacing and alignment. Posterior elements are intact. There is no c ompression fracture. Facet joints are intact. IMPRESSION: Negative CT scan of the cervical soft tissues.
[2021-03-17 20:22] VITALS: BP 127/97; PULSE 102; RESP 18; TEMP 98.6
[2021-03-17] MEDS ORDERED: DEXAMETHASONE SOD PHOSPHATE 10 MG/ML 1 ML VIAL IVP STA (20:33)
[2021-03-17] MEDS ORDERED: cefTRIAXone IN SWFI 1,000 MG/10 ML SYRINGE IVP STA (20:34)
[2021-03-17] MEDS ORDERED: ONDANSETRON 4 MG/2 ML VIAL IVP STA (20:45)
== END 2021-03-17 20:54 | disposition home or self-care (01) ==
LOC: EC 15:46
DX: J03.90 Acute tonsillitis, unspecified (principal); Z20.822 Contact with and (suspected) exposure to COVID-19; E11.9 Type 2 diabetes mellitus without complications; F41.9 Anxiety disorder, unspecified; Z79.4 Long term (current) use of insulin; Z79.84 Long term (current) use of oral hypoglycemic drugs; Z79.899 Other long term (current) drug therapy
CPT/HCPCS: 36415; 80053; 83605; 85025; 86308; 87081; 87430; 87635; 70491; 99285; 96374; 96375 ×3; J1100; J2765; J2405; J0696; Q9967

== ENCOUNTER → 2021-04-05 | Outpatient (CLI) | payer BC ==
--- NOTE | 2021-04-05 13:07 | XR ---
EXAMINATION TYPE: XR KUB DATE OF EXAM: 04/05/2021 12:51 PM CLINICAL HISTORY: Nausea vomiting and weight loss. TECHNIQUE: Two supine KUB images of the abdomen are obtained. COMPARISON: CT abdomen and pelvis July 13, 2016. FINDINGS: Gas is seen in nondistended stomach. Scattered gas is seen in non-distended small bowel loo ps. Gas and fecal material is seen in non-distended colon. Small gallstones in the right upper quadra nt are redemonstrated. The lung bases are clear. Slight underlying scoliotic curvature or positioning is noted. IMPRESSION: Overall nonobstructive bowel gas pattern.
== END | disposition home or self-care (01) ==
LOC: RADXRMAIN 12:34
PROVIDERS: ATTEND Family Medicine
DX: R11.2 Nausea with vomiting, unspecified (principal); R63.4 Abnormal weight loss
CPT/HCPCS: 74018

== ENCOUNTER → 2021-04-05 | Outpatient (CLI) | payer BC ==
[2021-04-05 18:19] LABS: Amylase 95 U/L (23-121); Lipase 108 U/L (14-63)
== END | disposition home or self-care (01) ==
LOC: LABWHC1 11:22
PROVIDERS: ATTEND Family Medicine
DX: R11.2 Nausea with vomiting, unspecified (principal)
CPT/HCPCS: 36415; 82150; 83690

== ENCOUNTER → 2021-05-12 | Outpatient (CLI) | payer BC ==
[2021-05-12 19:21] LABS: ALT 43 U/L (8-44); AST 28 U/L (13-35); African American GFR (CKD) 127.4 (60.0-200.0); Albumin 4.6 g/dL (3.8-4.9); Albumin/Globulin Ratio 2.09 (1.60-3.17); Alkaline Phosphatase 67 U/L (41-126); BUN/Creat Ratio 17.71 Ratio (12.00-20.00); Blood Urea Nitrogen 12.4 mg/dL (9.0-27.0); Calcium 9.7 mg/dL (8.7-10.3); Carbon Dioxide 22.7 mmol/L (20.0-27.5); Chloride 101 mmol/L (96-109); Globulin 2.2 g/dL (1.6-3.3); Glucose 216 mg/dL (70-110); Non-African American GFR(CKD) 109.9 (60.0-200.0); Potassium 4.8 mmol/L (3.5-5.5); Sodium 135 mmol/L (135-145); Total Protein 6.8 g/dL (6.2-8.2)
== END | disposition home or self-care (01) ==
LOC: LABWHC1 10:04
PROVIDERS: ATTEND Internal Medicine Endocrinology, Diabetes & Metabolism
DX: E11.65 Type 2 diabetes mellitus with hyperglycemia (principal)
CPT/HCPCS: 36415; 80053; 80061; 82043; 82570; 83036; 84443

== ENCOUNTER → 2021-09-10 | Outpatient (CLI) | payer BC ==
[2021-09-10 18:53] LABS: ALT 28 U/L (8-44); AST 22 U/L (13-35); African American GFR (CKD) 124.8 (60.0-200.0); Albumin 4.6 g/dL (3.8-4.9); Albumin/Globulin Ratio 2.04 (1.60-3.17); Alkaline Phosphatase 52 U/L (41-126); Blood Urea Nitrogen 9.5 mg/dL (9.0-27.0); Calcium 9.5 mg/dL (8.7-10.3); Carbon Dioxide 23.8 mmol/L (20.0-27.5); Chloride 102 mmol/L (96-109); Chol/HDL Ratio 5.09 Ratio; Globulin 2.3 g/dL (1.6-3.3); Glucose 154 mg/dL (70-110); LDL Cholesterol,Calculated 85.7 mg/dL (0.0-131.0); Non-African American GFR(CKD) 107.7 (60.0-200.0); Potassium 4.4 mmol/L (3.5-5.5); Sodium 137 mmol/L (135-145); Total Protein 6.9 g/dL (6.2-8.2)
[2021-09-10 21:58] LABS: Microalbumin Creatinine Ratio <30 mg/g Creat (0-30)
== END | disposition home or self-care (01) ==
LOC: LABWHC1 10:35
PROVIDERS: ATTEND Internal Medicine Endocrinology, Diabetes & Metabolism
DX: E11.65 Type 2 diabetes mellitus with hyperglycemia (principal)
CPT/HCPCS: 36415; 80053; 80061; 82043; 82570; 83036; 84443

== ENCOUNTER → 2022-02-02 | Outpatient (CLI) | payer BC ==
[2022-02-02 14:03] LABS: Microalbumin Creatinine Ratio <30 mg/g Creat (0-30); Urine Creatinine 68.5 mg/dL (28.0-217.0)
[2022-02-02 17:57] LABS: ALT 50 U/L (8-44); AST 34 U/L (13-35); African American GFR (CKD) 107.6 (60.0-200.0); Albumin 4.7 g/dL (3.8-4.9); Albumin/Globulin Ratio 1.96 (1.60-3.17); Alkaline Phosphatase 48 U/L (41-126); Blood Urea Nitrogen 11.6 mg/dL (9.0-27.0); Calcium 9.9 mg/dL (8.7-10.3); Carbon Dioxide 24.3 mmol/L (20.0-27.5); Chloride 103 mmol/L (96-109); Chol/HDL Ratio 4.41 Ratio; Globulin 2.4 g/dL (1.6-3.3); Glucose 197 mg/dL (70-110); LDL Cholesterol,Calculated 128.7 mg/dL (0.0-131.0); Non-African American GFR(CKD) 92.9 (60.0-200.0); Potassium 4.7 mmol/L (3.5-5.5); Sodium 138 mmol/L (135-145); Total Protein 7.1 g/dL (6.2-8.2)
== END | disposition home or self-care (01) ==
LOC: LABWHC1 08:28
PROVIDERS: ATTEND Internal Medicine Endocrinology, Diabetes & Metabolism
DX: E11.65 Type 2 diabetes mellitus with hyperglycemia (principal)
CPT/HCPCS: 36415; 80053; 80061; 82043; 82570; 83036; 84439; 84443; 84480

== ENCOUNTER → 2022-08-14 | Outpatient (CLI) | payer BC ==
[2022-08-14 15:35] LABS: ALT 22 U/L (8-44); AST 21 U/L (13-35); African American GFR (CKD) 104.5 (60.0-200.0); Albumin 4.5 g/dL (3.8-4.9); Albumin/Globulin Ratio 2.06 (1.60-3.17); Alkaline Phosphatase 44 U/L (41-126); BUN/Creat Ratio 24.15 Ratio (12.00-20.00); Blood Urea Nitrogen 19.8 mg/dL (9.0-27.0); Calcium 9.6 mg/dL (8.7-10.3); Carbon Dioxide 23.5 mmol/L (20.0-27.5); Chloride 102 mmol/L (96-109); Chol/HDL Ratio 4.28 Ratio; Globulin 2.2 g/dL (1.6-3.3); Glucose 196 mg/dL (70-110); LDL Cholesterol,Calculated 117.1 mg/dL (0.0-131.0); Non-African American GFR(CKD) 90.1 (60.0-200.0); Potassium 4.7 mmol/L (3.5-5.5); Sodium 139 mmol/L (135-145); Total Bilirubin <0.15 mg/dL (0.30-1.20); Total Protein 6.7 g/dL (6.2-8.2)
[2022-08-14 20:28] LABS: Microalbumin Creatinine Ratio <30 mg/g Creat (0-30); Urine Creatinine 59.4 mg/dL (28.0-217.0)
== END | disposition home or self-care (01) ==
LOC: LABWHC1 07:09
PROVIDERS: ATTEND Internal Medicine Endocrinology, Diabetes & Metabolism
DX: E11.65 Type 2 diabetes mellitus with hyperglycemia (principal)
CPT/HCPCS: 36415; 80053; 80061; 82043; 82570; 83036; 84443

== ENCOUNTER → 2023-12-23 | Outpatient (CLI) | payer BC ==
[2023-12-23 12:01] LABS: Microalbumin Creatinine Ratio <13 mg/g Cr (0-30); Urine Creatinine 94.2 mg/dL (28.0-217.0)
[2023-12-23 12:11] LABS: ALT 54 U/L (8-44); AST 46 U/L (13-35); Albumin 4.4 g/dL (3.8-4.9); Albumin/Globulin Ratio 1.76 Ratio (1.60-3.17); Alkaline Phosphatase 55 U/L (41-126); BUN/Creat Ratio 19.38 Ratio (12.00-20.00); Blood Urea Nitrogen 15.5 mg/dL (9.0-27.0); Calcium 9.3 mg/dL (8.7-10.3); Carbon Dioxide 23.3 mmol/L (21.6-31.8); Chloride 102 mmol/L (96-109); Chol/HDL Ratio 7.53 Ratio; Globulin 2.5 g/dL (1.6-3.3); Glucose 166 mg/dL (70-110); LDL Cholesterol,Calculated 182.7 mg/dL (0.0-131.0); Potassium 4.7 mmol/L (3.5-5.5); Sodium 138 mmol/L (135-145); Total Bilirubin 0.2 mg/dL (0.3-1.2); Total Protein 6.9 g/dL (6.2-8.2)
== END | disposition home or self-care (01) ==
LOC: LABWHC1 07:04
PROVIDERS: ATTEND Internal Medicine Endocrinology, Diabetes & Metabolism
DX: E11.65 Type 2 diabetes mellitus with hyperglycemia (principal)
CPT/HCPCS: 36415; 80053; 80061; 82043; 82570; 83036; 84443